=== PATIENT | male | born 1960 | race Caucasian/White ===

== ENCOUNTER → 2017-10-22 07:43 | Outpatient (CLI) | payer OTHER, SELFPAY ==
--- NOTE | 2017-10-22 07:45 | US_ITS ---
STUDY: ABDOMINAL ULTRASOUND - RIGHT UPPER QUADRANT REASON FOR VISIT: Male, 57 years old. Abdominal pain. TECHNIQUE: Ultrasound evaluation of the right upper quadrant was performed with real-time and static salmeron-scale imaging. TECHNICAL QUALITY: Adequate. COMPARISON: None. FINDINGS: Liver: The liver measures 16.9 cm. There is increased echogenicity consistent with fatty infiltration. The bile ducts are within normal limits. There is hepatic color flow. The direction of portal flow is hepatopetal. There is no demonstrated mass lesion. Gallbladder: Normal distended gallbladder. The gallbladder wall measures 2.3 mm. There is a negative sonographic Lyons's sign. There is no pericholecystic fluid. There are no gallstones. Common Bile Duct (C.B.D.): The common bile duct measures 3.3 mm. Pancreas: There is nonvisualization of the pancreas due to overlying bowel gas. Right Kidney: Normal size of the right kidney. The right kidney measures 10.8 cm x 6.3 cm x 5.2 cm. Normal renal cortex. The right cortex measures 1.7 cm. There is no demonstrated renal mass or cyst. There is no right hydronephrosis. US/Gallbladder IMPRESSION: Fatty infiltration of the liver. Electronically Signed: Haresh Sevilla MD at 9:09 EST Tel [phone], Service support ,
== END ==
PROVIDERS: Family Provider Internal Medicine; PCP Internal Medicine; Visit Provider Internal Medicine
DX: K76.0 Fatty (change of) liver, not elsewhere classified (principal); R10.11 Right upper quadrant pain
CPT/HCPCS: 76705

== ENCOUNTER → 2017-11-08 11:49 | Outpatient (CLI) | payer OTHER, SELFPAY ==
--- NOTE | 2017-11-08 11:50 | NM_ITS ---
CLINICAL: 7-year-old male with reported history of abdominal pain. RADIONUCLIDE HEPATOBILIARY SCINTIGRAPHY COMPARISON: Abdominal ultrasound report 10/22/2017 FINDINGS: Following the intravenous administration of 5.1 mCi of 99m Tc Mebrofenin, hepatobiliary images reveal: 1. Relatively prompt and homogeneous radiopharmaceutical concentration is noted by a normal sized liver. No parenchymal defects are identified. 2. Gallbladder activity is identified at 15 minutes post radiopharmaceutical administration. 3. Intestinal tract is not visualized during 60 minutes of sequential image acquisition. Small bowel is defined following the administration of the fatty meal. 4. Washout of the radiopharmaceutical by the hepatic parenchyma appears qualitatively normal. The patient was administered a fatty meal (8 ounces BOOST). The post fatty meal ingestion gallbladder ejection fraction calculated at 60 minutes was noted to be 52.0 % (normal greater than 30%). NM/Hepatobilliary Imaging IMPRESSION: 1. NORMAL 99m Tc Mebrofenin hepatobiliary imaging survey with fatty meal ingestion. A. A gallbladder ejection fraction calculated to be greater than 30% following the administration of an ingested fatty meal makes the probability of functional hepatobiliary disease (gallbladder and/or sphincter of Oddi dyskinesia) and/or organic hepatobiliary disease (chronic acalculous cholecystitis and/or cystic duct syndrome) to be low. (Good and Ezekiel, J Nucl Med 43: 1603, 2002). Electronically Signed: Saeid Villanueva DO at 13:36 EDT Tel , Service support ,
== END ==
PROVIDERS: Family Provider Internal Medicine; PCP Internal Medicine; Visit Provider Internal Medicine
DX: R10.11 Right upper quadrant pain (principal)
CPT/HCPCS: 78226; 78227; A9537

== ENCOUNTER 2018-12-05 15:41 | Day surgery (SDC) | payer OTHER, SELFPAY ==
[2018-12-05] VITALS (14 sets, daily range): BP systolic 142–170; BP diastolic 74–101; PULSE 45–64; RESP 12–20; TEMP 36.2–36.9; O2SAT 96–99; BMI 36.8; BMI 37.4
--- NOTE | 2018-12-05 12:33 | STEWCON_ITS ---
Reason For Study: SOB Stress Results Protocol: Stress Echocardiogram Maximum Predicted HR: 163 bpm Target HR: 139 bpm % Maximum Predicted HR: 93 % DurationHeart Rate Stage (mm:ss) (bpm) BP Comment BASELINE 67 154/80DILUTED DEFINITY 3 ML USED PAULO PROTOCOL- STAGE 1 3:00 129 148/80WARM SENSATION MIDSTERNAL 3/10, SL SOB PAULO PROTOCOL- STAGE 2 3:00 146 154/84MIDSTERNAL TIGHTNESS 5/10, SL SOB PAULO PROTOCOL- STAGE 3 0:47 151 / MIDSTERNAL BURNING/TIGHTNESS 5/10, SOB RECOVERY 82 144/88CP/SOB HAS SUBSIDED Stress Duration: 6:47 mm:ss Maximum Stress HR: 151 bpm Baseline Echocardiogram Findings The estimated ejection fraction is 65 %. Stress Echo Wall motion Data Resting WM Intermediate WM Stress WM Resting Wall Motion Wall Motion Stress No regional wall motion Basal anteroseptal: Severely abnormalities noted. Hypokinetic. Mid-Anterior : Severely Hypokinetic. Anterior Osgood : Akinetic. Inferior Osgood : Akinetic. EKG Data The baseline ECG displays normal sinus rhythm. The patient exercised according to the regular Paulo protocol for a total duration of 6:47. The maximum heart rate attained was 151 beats per minute. This was 92% of maximum predicted heart rate. The patient exercised into stage 3 of the Paulo protocol. The stress ECG displays diffuse abnormal ST segments. Interpretation Summary The estimated ejection fraction is 65 %. Basal anteroseptal: Severely Hypokinetic. Mid-Anterior : Severely Hypokinetic. Anterior Osgood : Akinetic. Abnormal, adequate, treadmill echocardiogram. Positive for ischemia by both EKG and echocardiographic criteria. Patient developed anginal symptoms at 3 minutes into exercise which persisted until several minutes into recovery. In addition he developed [address] segment depression along the inferior and lateral leads which resolved by 1 minute 50 seconds into recovery. Rare PVCs noted. Patient also developed significant mid anterior hypokinesis with apical akinesis at peak exercise. Final LVEF of 35%. Test terminated due to EKG and echocardiographic abnormalities. Patient referred for urgent catheterization given history and abnormal findings The study was technically difficult. Contrast injection was performed. Ordering Physician: Nikki Long Referring Physician: Nikki Long Performed By: Saranya Carlson RDCS
[2018-12-05 14:26] LABS: Hematocrit 44.8 % (40-54); Hemoglobin 15.2 g/dl (13.0-16.5); Mean Corp Hgb Conc 33.9 g/gl (32-36); Mean Corpuscular Hgb 30.4 pg (27.0-32.0); Mean Corpuscular Volume 89.6 fL (80-94); Mean Platelet Vol. 10.1 fl (6.2-12.0); Platelet Count 222 K/mm3 (150-450); RBC Distribution Width CV 13.8 % (11.6-14.6); White Blood Count 8.7 K/mm3 (4.4-11.0)
[2018-12-05 14:29] LABS: International Normalized Ratio 1.1; Prothrombin Time (Protime)PT. 13.9 SECONDS (11.7-14.9)
[2018-12-05 14:30] LABS: Partial Thromboplast Time 32.3 Seconds (24.1-36.2)
[2018-12-05 14:33] LABS: Anion Gap 7 (5-15); BUN 17 mg/dL (7-18); BUN/Creat Ratio 16.5 RATIO (10-20); Calcium,Total 8.8 mg/dL (8.5-10.1); Chloride 108 mmol/L (98-107); Creatinine, Serum 1.03 mg/dL (0.70-1.30); EST Glomerular Filtration Rate 79 mL/min (>60); Est Glom Filt Rate - Afr Amer 96 mL/min (>60); Glucose 91 mg/dL (74-106); Potassium 4.1 mmol/L (3.5-5.1); Sodium Level 138 mmol/L (136-145)
[2018-12-05 14:48] LABS: Scan Indicated on CBC? Y/N NO
--- NOTE | 2018-12-05 15:54 | CRPHASE1 ---
Patient Communication PHII Cardiac Rehab Discussed with Patient:: Yes - discussed with pt's Guide to Cardiac Rehab Given to Patient:: Yes Cardiac Rehab Facility Choice List Given to Patient:: Yes - chooses [facility] Choice Program [facility] CR PHII:: Communication Given to CR, Refer to [facility] Pharmacist In Charge Owner:: Loyd Jama PCP:: Nikki Long Phase II Cardiac Rehab:: Yes Sessions:: 36 sessions - 3 days/wk, 12 weeks Risk Factors/Lifestyle Phase I Education Given On:: [place], Nutrition, Antiplatelet medication, CHF, Smoking cessation, Diabetes - Type I, Diabetes - Type II Knowledge of Condition:: Yes Discharge/Home/Social Eval Marital Status: Cardiac Rehabilitation Info Cardiac Rehabilitation Program Information: Cardiac Rehabilitation is important for patients like you who are recovering from a heart problem. Cardiac rehabilitation programs are recognized as integral to the continued care of the patient with coronary heart disease. The cardiac rehabilitation program is designed to optimize a patient's physical, psychological, and social functioning. Health intensive care specialist work in cardiac rehabilitation programs and assist you with getting the treatments you need to get stronger and healthier - like exercise, healthy eating habits, and medications. Cardiac rehabilitation has been show to help people with heart problems live longer and have better life enjoyment than people who do not go to cardiac rehabilitation. Please contact the Cardiac Rehabilitation Program at [facility] at in two weeks if you have not heard from them.
--- NOTE | 2018-12-05 15:57 | CRPHASE1_ITS ---
Patient Communication PHII Cardiac Rehab Discussed with Patient:: Yes - discussed with pt's Guide to Cardiac Rehab Given to Patient:: Yes Cardiac Rehab Facility Choice List Given to Patient:: Yes - chooses [facility] Choice Program [facility] CR PHII:: Communication Given to CR, Refer to [facility] Circuit Breaker Mechanic:: Loyd Jama PCP:: Nikki Long Phase II Cardiac Rehab:: Yes Sessions:: 36 sessions - 3 days/wk, 12 weeks Risk Factors/Lifestyle Phase I Education Given On:: [place], Nutrition, Antiplatelet medication, CHF, Smoking cessation, Diabetes - Type I, Diabetes - Type II Knowledge of Condition:: Yes Discharge/Home/Social Eval Marital Status: Cardiac Rehabilitation Info Cardiac Rehabilitation Program Information: Cardiac Rehabilitation is important for patients like you who are recovering from a heart problem. Cardiac rehabilitation programs are recognized as integral to the continued care of the patient with coronary heart disease. The cardiac rehabilitation program is designed to optimize a patient's physical, psychological, and social functioning. Health landcare officer work in cardiac rehabilitation programs and assist you with getting the treatments you need to get stronger and healthier - like exercise, healthy eating habits, and medications. Cardiac rehabilitation has been show to help people with heart problems live longer and have better life enjoyment than people who do not go to cardiac rehabilitation. Please contact the Cardiac Rehabilitation Program at [facility] at in two weeks if you have not heard from them.
--- NOTE | 2018-12-05 15:57 | CRPH1.INSTRU ---
General Education CAD and cardiac anatomy and function:: Needs reinforcement - all info discussed with pt's . 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 Explanation of diagnoses and procedures:: Needs reinforcement Sign/Symptoms of WA:: Needs reinforcement Antiplatelet therapy: Needs reinforcement Proper use of NTG-SL: Needs reinforcement Emergency procedures and activation of EMS: Needs reinforcement Compliance of all prescribed medications: Needs reinforcement
--- NOTE | 2018-12-05 16:22 | ECHOCS_ITS ---
Reason For Study: CAD/ASHD Procedure This was a 2D Doppler, Color Flow transthoracic echocardiogram. Contrast injection was performed. Exam performed portable in ICU/CCU. Left Ventricle Normal size and thickness. The estimated ejection fraction is 55-60 %. Stage 1 diastolic dysfunction. Anterior [place] : Mildly hypokinetic. Right Ventricle Normal size and thickness. Normal systolic function. Atria Normal left atrium. Normal right atrium. Normal atrial septum. Mitral Valve The mitral valve is structurally normal. No prolapse or stenosis seen. Tricuspid Valve Normal tricuspid valve. Trivial tricuspid valve insufficiency. Unable to estimate RV systolic pressure/pulmonary artery pressure due to technically difficult study. Aortic Valve Normal aortic valve. Trisinus/trileaflet aortic valve. Pulmonic Valve Normal pulmonic valve. Great Vessels Normal aortic root. Normal arch. Normal inferior vena cava. Inferior vena cava collapse with sniff. Pericardium/Pleural No pericardial effusion. Medication Definity0.4ml given slow IV push to enhance endocardial definition. MMode/2D Measurements & Calculations LVIDd: 5.4 cm IVSd: 1.3 cm Ao root diam: 3.5 cm LVIDs: 2.8 cm LVPWd: 1.3 cm RVDd: 4.6 cm FS: 48.8 % LAV(MOD-bp): 50.5 ml LVAd ap4: 36.2 cm2 SV(MOD-sp4): 86.3 ml LAV(MOD-bp) Indexed: 21.6 ml/m2 EDV(MOD-sp4): 126.6 ml LAV(MOD-sp2): 41.1 ml EDV(sp4-el): 129.1 ml LAV(MOD-sp4): 60.5 ml LVAs ap4: 18.2 cm2 ESV(MOD-sp4): 40.3 ml ESV(sp4-el): 39.7 ml EF(MOD-sp4): 68.2 % EF(sp4-el): 69.2 % SV(sp4-el): 89.4 ml LA A4 area: 20.5 cm2 LA dimension(2D): 4.6 cm RA A4 area: 14.0 cm2 Doppler Measurements & Calculations MV E max silviano: 68.3 cm/sec Lat Peak E' Silviano: 6.7 cm/sec Med Peak E' Silviano: 6.6 cm/sec MV A max silviano: 76.2 cm/sec E/E' lat: 10.2 E/E' med: 10.3 MV E/A: 0.90 Ao V2 max: 148.7 cm/sec LV V1 max: 118.1 cm/sec PA V2 max: 145.8 cm/sec Ao max P.8 mmHg LV V1 max P.6 mmHg Ao V2 mean: 104.9 cm/sec Ao mean P.9 mmHg Ao V2 VTI: 31.3 cm Interpretation Summary The estimated ejection fraction is 55-60 %. Stage 1 diastolic dysfunction. Anterior [place] : Mildly hypokinetic Unable to estimate RV systolic pressure/pulmonary artery pressure due to technically difficult study. The study was technically difficult. There is no comparison study available. Contrast injection was performed. Ordering Physician: Loyd Jama Referring Physician: Nikki Long Performed By: Ester García RDCS, RVT
--- NOTE | 2018-12-05 16:22 | EKG12_ITS ---
Test Reason : AM EKG Blood Pressure : / mmHG Vent. Rate : 050 BPM Atrial Rate : 050 BPM P-R Int : 180 ms QRS Dur : 088 ms QT Int : 424 ms P-R-T Axes : 036 054 068 degrees QTc Int : 386 ms Sinus bradycardia Otherwise normal ECG When compared with ECG of 17-JUL-2002 08:58, Vent. rate has decreased BY 32 BPM Confirmed by LUCI PEREZ, DESIRAE ([id number]), web content editor KARTHIKEYAN PRESTON ([id number]) on 12/10/2018 2:02:10 PM Referred By: Nikki Long Confirmed By:DESIRAE VERMA MD
--- NOTE | 2018-12-05 16:26 | CL.I_ITS ---
Patient Name: JOSHUA PRESTON Study Date: 12/05/2018 Performing: Loyd Jama MD Ht: 70 inches 177.8 cm : 1960 Wt: 257.3 lbs 116.57 kg Age: 58 Gender: male BSA: 2.32 PROCEDURE(S) PERFORMED IW52-UXF/COR/LV DM92-EGS W OR WO PTCA, SINGLE CORONARY ARTERY CLINICAL PROFILE AND CO-MORBIDITIES Indications: New Onset Angina <= 2 months, Worsening Angina, Suspected CAD Heart Failure: None Stress/Imaging Date: 12/05/2018 Stress Echocardiogram: Positive High Risk Angina Classification Anginal Classification w/in 2 Weeks: CCS III CAD Presentations: Unstable angina. Other: Dyspnea on exertion Comorbidities/Risk Factors: Hypertension Dyslipidemia Family History of Premature CAD CONCLUSIONS Normal LV size, wall motion,and systolic function Perserved Left Ventricular systolic function with normal EDP Single vessel CAD of the LAD Non obstructive coronary arteries Successful PTCA/THU mid LAD with a 3.5 x 38 Promus Synergy, post dilated throughout with a 3.5 x 12 N C ballloon at 18 atim; 99%-->0%, no dissection. Successful PTCA/THU distal LAD with a 2.5 x 32 Promus Synergy, post dilated with a 2.5 x 12 NC Balloo n 75%-->0%, no dissection. RECOMMENDATIONS Referred for immediate PCI Management as per referring Brand Strategy Manager Highly recommend quitting all tobacco products Follow up with primary hydraulic billet maker Risk factor modification ASA Indefinitley Plavix for at least 12 months Routine post interventional care Refer for Outpatient Cardiac Rehab Manual sheath removal per protocol Follow up with Dr. Jama Medical management of 50% mid LAD stenosis unless or until Pt has recurrent angina or anterior ischem ia. Successful Mynx closure. DESCRIPTION OF PROCEDURE The patient arrived to the procedure lab. The risks and benefits of the procedure as well as a full d escription of our services here and lack of surgical backup were fully explained to the patient and/o r their significant other prior to the catheterization. The Timeout was completed, verifying the cristóbal ect patient and procedure. The patient's procedural site was prepped and draped in the usual fashion. Local anesthetic was given subcutaneously to right groin region with Lidocaine 2%. Using a modified Seldinger technique, arterial access was obtained via the right femoral artery, a 4Fr sheath was inse rted. Left Coronary Artery selective angiography was performed in multiple views using a 4 Fr. JL5 c atheter. Right Coronary Artery selective angiography was then performed in multiple views using a 4 F r. 3DRC catheter. Left Ventriculography was performed in HAYWARD projection using a 4 Fr. Pigtail cathete r. LV to AO pullback pressures were then recordedThe images were reviewed and options discussed. A decision was then made to proceed with an Intervention, IVUS or other adjunct procedure. Arterial sheath was exchanged for a 6 Fr Sheath. EBU 3.75 Guide catheter was inserted and engaged into the LCA. Emerge 2.00x8 Balloon catheter was inserted and crossed lesion [facility] AP inserted Pass # 1 [facility] AP Removed Emerge 2.00x8 Balloon catheter was inserted. PTCA balloon inflated at 6 atms f or 9 secs. PTCA balloon inflated at 6 atms for 6 secs. PTCA balloon inflated at 6 atms for 7 secs. Em erge 2.50x12 Balloon catheter was inserted. PTCA balloon inflated at 8 atms for 8 secs. PTCA balloon inflated at 8 atms for 7 secs. Angiogram performed post balloon dilatation. Emerge 2.50x12 Balloon ca theter was inserted. PTCA balloon inflated at 6 atms for 5 secs. PTCA balloon inflated at 6 atms for 5 secs. PTCA balloon inflated at 6 atms for 6 secs. Angiogram performed post balloon dilatation. Syne rgy 2.50x32 Drug Eluting stent was inserted. Angiogram performed post stent deployment. Synergy 3.50x 38 Drug Eluting stent was inserted. NC Emerge 2.50x12 Balloon catheter was inserted. PTCA balloon inflated at 14 atms for 9 secs. PTCA balloon inflated at 14 atms for 6 secs. PTCA balloon inf lated at 14 atms for 6 secs. PTCA balloon inflated at 14 atms for 6 secs. Angiogram performed post ba lloon dilatation. Balloon catheter was inserted, NC Emerge 3.50x12 PTCA balloon inflated at 14 atms f or 7 secs. PTCA balloon inflated at 14 atms for 6 secs. PTCA balloon inflated at 14 atms for 7 secs. PTCA balloon inflated at 14 atms for 7 secs. PTCA balloon inflated at 14 atms for 6 secs. PTCA balloo n inflated at 18 atms for 10 secs. PTCA balloon inflated at 18 atms for 7 secs. Angiogram performed p ost balloon dilatation. Contrast was injected through the sheath and the Right Iliac and Femoral mike ry were assessed for possible closure device. The arterial sheath was pulled and a Mynx closure go ce was deployed for hemostasis CORONARY ANGIOGRAPHY DOMINANCE: Right Dominant LEFT HEART ASSESSMENT Left Ventricular Ejection Fraction: by LV Gram 65 % Normal Left Ventricular systolic function LVEDP: 15 mmHg LEFT MAIN: Angiographically normal LEFT ANTERIOR DECENDING ARTERY: MID LAD: 99 % Stenosis DISTAL LAD: 75 % Stenosis CIRCUMFLEX ARTERY: Mild luminal irregularities less than 30% RIGHT CORONARY ARTERY: Mild luminal irregularities less than 30% COLLATERAL FLOW: Collateral flow from Left to Left INTERVENTION INFORMATION LESION SITE: LAD (Mid) Lesion Complexity: High/C, lesion at bifurcation: No, thrombus present: Yes, lesion length: 38 mm, cu lprit lesion: Yes Pre Stenosis: 99 % Pre intervention JASMYN flow: 1 PROCEDURE: Drug Eluting Stent with pre and post dilatation Post Stenosis: 0 % Post intervention JASMYN flow: 3 Lesion Devices: Medtronic 6 Fr EBU3.75 100cm Guide Catheter Jose Juan Sci EMERGE MR 2.00x08 BALLOON Medtronic 6 Fr. [facility] AP Aspiration Catheter Jose Juan Sci EMERGE MR 2.50x12 BALLOON Jose Juan Sci Synergy MR THU 3.50x38 Jose Juan Sci NC EMERGE MR 3.50x12 BALLOON Lesion Devices: Medtronic 6 Fr EBU3.75 100cm Guide Catheter Jose Juan Sci Synergy MR THU 2.50x32 Jose Juan Sci NC EMERGE MR 2.50x12 BALLOON COMPLICATIONS No Complications PROCEDURE MEDICATIONS Oxygen: 2 L/min via nasal cannula Aspirin (325mg) 1 Tabs PO 12/05/2018 14:01:44 Brilinta 180 mg PO @ 12/05/2018 14:01:51 Heparin 6000 unit(s) IV 12/05/2018 15:05:50 Nitro 200 mcg IC 12/05/2018 15:22:05 Nitro 200 mcg IC 12/05/2018 15:22:05 Nitro 200 mcg IC 12/05/2018 15:28:50 Nitro 200 mcg IC 12/05/2018 15:33:40 Nitro 200 mcg IC 12/05/2018 15:46:14 IV Bolus: .9 NaCl 500ml total 12/05/2018 15:05:57 IV Fluids: .9 NaCl IV started @ 150 ml/hr 12/05/2018 16:04:21 SUMMARY OF HEMODYNAMIC DATA Time AIR REST ECG 14:04:07 AO 147/71 (99) SA 14:57:19 LV 165/-14, 15 15:03:30 LV 185/-16, 25 15:03:36 LVp 182/-15, 29 15:03:41 AOp 164/74 (110) 15:03:46 Signed By Loyd Jama MD On 12/05/2018 16:25:24 Loyd Jama MD
--- NOTE | 2018-12-05 16:31 | PCM.DC.CCA ---
Discharge Diet: Low fat/ Low Cholesterol May shower in (days): 1 Lifting Restrictions: 10 pounds and also avoid any pushing or pulling for 3 days after your test. Call your doctor if your incision/area has: Continuous Slow Oozing, Sudden Increased Bleeding, Increased Pain/ Swelling, Increased Redness, Foul Smelling Discharge, Swelling at the incision site Call your doctor if you observe: Fever of 101 or Higher, Shortness of breath, Chest pain Remove Dressing in (days):: 1 Additional Instructions: You were started on an antiplatelet to help keep your stents open. You will need to stay on this medication for at least one year Prior to discontinuing. You are scheduled to see Dominik bee nurse practitioner at the [facility] on December 15 at 1030 for a follow-up on your heart catheterization. Our office phone number is [phone] if you have any questions. Allergies/Adverse Reactions: Allergies Latex, Natural Rubber Allergy (Verified 12/05/18 14:11) Rash Medications to take at Discharge Aspirin 81 mg PO DAILY 12/05/18 Fish Oil/Dha/Epa [Fish Oil 1,200 mg Fish Oil] 5 each PO DAILY 12/05/18 Primary Care Physician: Nikki Long DO [Primary Care Provider] - Test Results: Test results from this visit will be discussed in further detail at your follow-up appointment, if applicable. Please Follow Up With: Dominik Bee NP-C When: 12/15 at 1030 Cardiac Rehabilitation Info Cardiac Rehabilitation Program Information: Cardiac Rehabilitation is important for patients like you who are recovering from a heart problem. Cardiac rehabilitation programs are recognized as integral to the continued care of the patient with coronary heart disease. The cardiac rehabilitation program is designed to optimize a patient's physical, psychological, and social functioning. Health med care manager work in cardiac rehabilitation programs and assist you with getting the treatments you need to get stronger and healthier - like exercise, healthy eating habits, and medications. Cardiac rehabilitation has been show to help people with heart problems live longer and have better life enjoyment than people who do not go to cardiac rehabilitation. Please contact the Cardiac Rehabilitation Program at [facility] at in two weeks if you have not heard from them.
--- NOTE | 2018-12-05 16:39 | DCINST_ITS ---
Discharge Diet: Low fat/ Low Cholesterol May shower in (days): 1 Lifting Restrictions: 10 pounds and also avoid any pushing or pulling for 3 days after your test. Call your doctor if your incision/area has: Continuous Slow Oozing, Sudden Increased Bleeding, Increased Pain/ Swelling, Increased Redness, Foul Smelling Discharge, Swelling at the incision site Call your doctor if you observe: Fever of 101 or Higher, Shortness of breath, Chest pain Remove Dressing in (days):: 1 Additional Instructions: You were started on an antiplatelet to help keep your stents open. You will need to stay on this medication for at least one year Prior to discontinuing. You are scheduled to see Dominik bee nurse practitioner at the [facility] on December 15 at 1030 for a follow-up on your heart catheterization. Our office phone number is [phone] if you have any questions. Allergies/Adverse Reactions: Allergies Latex, Natural Rubber Allergy (Verified 12/05/18 14:11) Rash Medications to take at Discharge Aspirin 81 mg PO DAILY 12/05/18 Fish Oil/Dha/Epa [Fish Oil 1,200 mg Fish Oil] 5 each PO DAILY 12/05/18 Primary Care Physician: Nikki Long DO [Primary Care Provider] - Test Results: Test results from this visit will be discussed in further detail at your follow- up appointment, if applicable. Please Follow Up With: Dominik Bee NP-C When: 12/15 at 1030 Cardiac Rehabilitation Info Cardiac Rehabilitation Program Information: Cardiac Rehabilitation is important for patients like you who are recovering from a heart problem. Cardiac rehabilitation programs are recognized as integral to the co ntinued care of the patient with coronary heart disease. The cardiac rehabilitation program is designed to optimize a patient's physical, psychological, and social functioning. Health director of healthcare systems work in cardiac rehabilitation programs and assist you with getting the treatments you need to get stronger and healthier - like exercise, healthy eating habits, and medications. Cardiac rehabilitation has been show to help people with heart problems live longer and have better life enjoyment than people who do not go to cardiac rehabilitation. Please contact the Cardiac Rehabilitation Program at [facility] at in two weeks if you have not heard from them.
[2018-12-05] MEDS: 0.9% Normal Saline 1,000 ML 150 ML IV (16:54)
[2018-12-05] MEDS: Losartan Potassium 25 MG Tablet PO (17:15)
[2018-12-05 17:16] LABS: ACT Activated Clotting Time 202 sec (74-137)
--- NOTE | 2018-12-05 17:36 | HP.PCM_ITS ---
Problem List (1) Hypertension Status: Acute (2) Dyslipidemia Status: Acute (3) Obesity grade 3 Status: Acute (4) CAD (coronary artery disease) Status: Acute Comment: Successful PTCA/THU mid LAD with a 3.5 x 38 Promus Synergy, post dilated throughout with a 3.5 x 12 NC ballloon at 18 atim; 99%-->0%, no dissection. Successful PTCA/THU distal LAD with a 2.5 x 32 Promus Synergy, post dilated with a 2.5 x 12 NC Balloon 75%-->0%, no dissection. (5) CAD (coronary artery disease), [place] coronary artery Status: Acute History of Present Illness Date of Admission: 12/05/18 Chief Complaint: Anginal symptoms and abnormal stress echo The patient is a 58 year old M with history of hypertension and dyslipidemia but not on medication had any stress echo because of shortness of breath and chest tightness even on mild activity/exercise. He said he was easily getting short of breath on stationary bike. He saw Dr. Long and was given prednisone 20 mg and pro-air thinking of possible bronchitis in October 2018. This did not improve and therefore he had a stress echo in November 2018 which was abnormal by both EKG and echocardiographic criteria patient patient developed anginal symptoms at 3 minutes into exercise which persisted until several mins into recovery. There was [address] segment depression inferior lateral leads which resolved by 1 minute 50 seconds into recovery. Patient also had significant mid anterior hypokinesis with apical akinesis at peak exercise. LVEF 35%. For this, patient had cardiac catheter today and found single-vessel CAD of LAD for which had 2 stents in mid LAD and distal LAD respectively. EF by LV gram 65%. Patient is further admitted in ICU after PCI [] Past Medical History Allergies Latex, Natural Rubber Allergy (Verified 12/05/18 14:11) Rash Home Medications: Ambulatory Orders Medication Instructions Recorded Aspirin 81 mg PO DAILY 12/05/18 Fish Oil/Dha/Epa [Fish Oil 1,200 5 each PO DAILY 12/05/18 mg Fish Oil] Smoking Status: Never smoker - *Family History Paternal Family History: Family History (Last Updated 12/05/18 @ 18:11 by Cal Beauchamp MD) Other MOTHER History Items: Heart Disease Review of Systems Constitutional: Denies: Chills, Fever, Weight Change HEENT: Denies: Head Aches, Sinus Congestion, Sinus Drainage Cardiovascular: Reports: Chest Tightness. Denies: Chest Pain, Palpitations Respiratory: Reports: Shortness of breath upon exertion. Denies: Cough, Shortness of breath at rest, Sputum production Gastrointestinal: Denies: Abdominal Pain, Nausea, Vomiting Genitourinary: Denies: Dysuria Musculoskeletal: Denies: Joint Pain, Joint Tenderness Skin: Denies: Rash, Wounds Neurological: Denies: Numbness, Tingling, Focal weakness Psychiatric: Denies: Anxiety, Depression, Homicidal Ideations, Suicidal Ideations Hematologic/ Lymphatic: Denies: Easy Bruising, Easy Bleeding VTE Information - Inpt Only VTE Present on Admission: Yes VTE Mechan Device Prophylaxis: None VTE Pharm Prophylaxis ordered?: Yes Patient Problems: Active and Suspected Problems Hypertension (Acute) Dyslipidemia (Acute) Obesity grade 3 (Acute) CAD (coronary artery disease), [place] coronary artery (Acute) CAD (coronary artery disease) (Acute) Successful PTCA/THU mid LAD with a 3.5 x 38 Promus Synergy, post dilated throughout with a 3.5 x 12 NC ballloon at 18 atim; 99%-->0%, no dissection. Successful PTCA/THU distal LAD with a 2.5 x 32 Promus Synergy, post dilated with a 2.5 x 12 NC Balloon 75%-->0%, no dissection. - Physical Exam General: Alert, Oriented x3, Cooperative HEENT: Atraumatic, PERRLA, EOMI, Normocephalic Oral: Moist Mucosa Neck: Supple, No JVD, Negative Carotid Bruits Lungs: Clear to auscultation, No rhonchi, No wheeze, No rales, Diminished - Air entry is diminished in bilateral lung bases probably secondary to obesity Cardiovascular: Regular rate, Regular Rhythm, Normal S1, Normal S2, No murmurs Abdomen: Bowel Sounds Present, Soft, Non Tender, Non-Distended Extremities: No edema, Capillary Refill Less than 3 Seconds Skin: No rashes, No breakdown, - - Right femoral cardiac cath access site, dry. No hematoma no BRUISE Musculoskeletal: No Tenderness to Palpation of Joints or Extremities Neurological: Cranial nerves II-XII grossly intact, Deep Tendon Reflexes 2+/4 and Symmetrical, Neuro grossly intact Psych/Mental Status: Normal Affect, Appropriate Vital Signs Temp Pulse Resp BP Pulse Ox 97.1 F L 55 L 15 158/101 H 98 12/05/18 16:30 12/05/18 17:30 12/05/18 17:30 12/05/18 17:30 12/05/18 17:30 Oxygen Delivery Method Room Air Weight: 261 lb 7.492 oz Body Mass Index (BMI) 37.4 Intake and Output for Last 24 Hours 12/03/18 12/04/18 12/05/18 23:59 23:59 23:59 Intake Total 104 / 104 Balance 104 / 104 Laboratory Tests Past 24 Hrs 12/05/18 12/05/18 12/05/18 14:10 14:10 14:10 WBC 8.7 RBC 5.00 Hgb 15.2 Hct 44.8 MCV 89.6 MCH 30.4 MCHC 33.9 RDW 13.8 RDW Differential 45.0 H Plt Count 222 MPV 10.1 PT 13.9 INR 1.1 APTT 32.3 Activated Clotting Time Sodium 138 Potassium 4.1 Chloride 108 H Carbon Dioxide 23.0 Anion Gap 7 BUN 17 Creatinine 1.03 Estim Creat Clear Calc 81.70 Est GFR (MDRD) Af Amer 96 Est GFR (MDRD) Non-Af 79 BUN/Creatinine Ratio 16.5 Glucose 91 Hemoglobin A1c Calcium 8.8 12/05/18 12/05/18 14:10 15:58 WBC RBC Hgb Hct MCV MCH MCHC RDW RDW Differential Plt Count MPV PT INR APTT Activated Clotting Time 202 H Sodium Potassium Chloride Carbon Dioxide Anion Gap BUN Creatinine Estim Creat Clear Calc Est GFR (MDRD) Af Amer Est GFR (MDRD) Non-Af BUN/Creatinine Ratio Glucose Hemoglobin A1c Pending Calcium Assessment/Plan All Active Problems Hypertension (Acute) Dyslipidemia (Acute) Obesity grade 3 (Acute) CAD (coronary artery disease), [place] coronary artery (Acute) CAD (coronary artery disease) (Acute) The patient is a 58 year old M with history of hypertension and dyslipidemia but not on medication had any stress echo because of shortness of breath and chest tightness even on mild activity/exercise. He said he was easily getting short of breath on stationary bike. He saw Dr. Long and was given prednisone 20 mg and pro-air thinking of possible bronchitis in October 2018. This did not improve and therefore he had a stress echo in November 2018 which was abnormal by both EKG and echocardiographic criteria patient patient developed anginal symptoms at 3 minutes into exercise which persisted until several mins into recovery. There was [address] segment depression inferior lateral leads which resolved by 1 minute 50 seconds into recovery. Patient also had significant mid anterior hypokinesis with apical akinesis at peak exercise. LVEF 35%. For this, patient had cardiac catheter today and found single-vessel CAD of LAD for which had 2 stents in mid LAD and distal LAD respectively. EF by LV gram 65%. 1. Unstable angina and abnormal stress echo with single-vessel coronary artery disease: Patient is being admitted in ICU after PCI. Patient is on aspirin, Brilinta, losartan, metoprolol and atorvastatin. Patient will be monitored for arrthymia after PCI. 2. Hypertension: Blood pressure is not well controlled. Currently started on losartan 25 mg daily and may need up titration tomorrow based on the response. 3. Dyslipidemia: Fasting profile on 01/09/2014 shows HDL 30 but normal LDL. Fasting profile is ordered. 4. Obesity grade 3: Patient will need further weight reduction exercise, aerobic exercise with cardiac rehab. Code Visit Inpatient E&M: 86638 Init Hosp L3
[2018-12-05] MEDS: Metoprolol Tartrate 25 MG Tablet 12.5 MG PO (18:37)
[2018-12-05 20:15] LABS: Hemoglobin A1c 5.3 % (4.2-6.3)
[2018-12-05] MEDS: Atorvastatin Calcium 80 MG Tablet PO (21:53)
[2018-12-05] MEDS: TICAGRELOR 90 MG TABLET PO (21:53)
[2018-12-06] VITALS (10 sets, daily range): BP systolic 134–163; BP diastolic 59–87; PULSE 47–69; RESP 10–20; TEMP 36.2–36.7; O2SAT 95–98
[2018-12-06 04:19] LABS: Hematocrit 40.9 % (40-54); Hemoglobin 13.8 g/dl (13.0-16.5); Mean Corp Hgb Conc 33.7 g/gl (32-36); Mean Corpuscular Hgb 30.3 pg (27.0-32.0); Mean Corpuscular Volume 89.9 fL (80-94); Mean Platelet Vol. 10.3 fl (6.2-12.0); Platelet Count 208 K/mm3 (150-450); RBC Distribution Width CV 14.1 % (11.6-14.6); RBC Distribution Width SD 45.7 fl (35.1-43.9); Red Blood Count 4.55 M/mm3 (4.6-6.2); White Blood Count 11.4 K/mm3 (4.4-11.0)
[2018-12-06 04:24] LABS: Scan Indicated on CBC? Y/N NO
[2018-12-06 04:40] LABS: Anion Gap 6 (5-15); BUN 14 mg/dL (7-18); BUN/Creat Ratio 14.4 RATIO (10-20); Calcium,Total 8.2 mg/dL (8.5-10.1); Chloride 107 mmol/L (98-107); Cholesterol 184 mg/dL (200); Creatinine, Serum 0.97 mg/dL (0.70-1.30); EST Glomerular Filtration Rate 85 mL/min (>60); Est Glom Filt Rate - Afr Amer 103 mL/min (>60); Estimated Creatinine Clearance 86.76 ml/min; Glucose 88 mg/dL (74-106); High Density Lipoprotein 27 mg/dL; Sodium Level 141 mmol/L (136-145); Triglycerides 171 mg/dL; Very Low Density Lipoprotein 34 mg/dL (5-40)
[2018-12-06] MEDS: Metoprolol Tartrate 25 MG Tablet 12.5 MG PO (07:38)
[2018-12-06] MEDS: TICAGRELOR 90 MG TABLET PO (07:38)
[2018-12-06] MEDS: Aspirin E.C. 81 MG Tablet PO (07:38)
[2018-12-06] MEDS: Losartan Potassium 25 MG Tablet PO (07:38)
--- NOTE | 2018-12-06 08:53 | PCM.PN.CARD ---
Subjectve: Mr. Montanez feels wonderful this morning acclimation Thanh he reports no chest pain and feels much better since his stenting with an immediate improvement. His right groin is clean/dry/intact, no thrills, bruits or hematoma. Hemoglobin and creatinine are within nominal limits. Telemetry is negative. EKG shows normal sinus rhythm with resolving ST and T wave inversion. Echo is pending. Objective: Vital Signs Temp Pulse Resp BP Pulse Ox 97.1 F L 58 L 14 147/87 H 96 12/06/18 08:00 12/06/18 08:00 12/06/18 08:00 12/06/18 08:00 12/06/18 08:00 Oxygen Delivery Method Room Air Weight: 261 lb 7.492 oz Body Mass Index (BMI) 37.4 Intake and Output for Last 24 Hours 12/04/18 12/05/18 12/06/18 23:59 23:59 23:59 Intake Total 104 / 104 1476 / 1476 Balance 104 / 104 1476 / 1476 General: Awake, Alert, Oriented x 3 HEENT: PERRL, EOMI, Sclera Non Icteric Neck: Supple, Good ROM, No Lymph Node Enlargement Lungs: Clear to auscultation Cardiovascular: Regular Rhythm, Normal S1, Normal S2, No Murmurs, No Rubs, No Gallops Vascular: No Carotid Bruits, Normal Femoral Pulses, Normal Radial Pulses, Normal Dorsalis Pedal Pulse, Normal Posterior Tibial Pulses Abdomen: Bowel Sounds Present, Soft, Non Tender, No HSM, No Organomegaly Extremities: No Cyanosis, No Clubbing, No edema Neurological: No Focal Motor or Sensory Deficit 12/05/18 14:10: WBC 8.7, RBC 5.00, Hgb 15.2, Hct 44.8, MCV 89.6, MCH 30.4, MCHC 33.9, RDW 13.8, RDW Differential 45.0 H, Plt Count 222, MPV 10.1 12/05/18 14:10: PT 13.9, INR 1.1, APTT 32.3 12/05/18 14:10: Sodium 138, Potassium 4.1, Chloride 108 H, Carbon Dioxide 23.0, Anion Gap 7, BUN 17, Creatinine 1.03, Est GFR (MDRD) Af Amer 96, Est GFR (MDRD) Non-Af 79, BUN/Creatinine Ratio 16.5, Glucose 91, Calcium 8.8 12/05/18 14:10: Hemoglobin A1c 5.3 12/06/18 04:00: WBC 11.4 H, RBC 4.55 L, Hgb 13.8, Hct 40.9, MCV 89.9, MCH 30.3, MCHC 33.7, RDW 14.1, RDW Differential 45.7 H, Plt Count 208, MPV 10.3 12/06/18 04:00: Sodium 141, Potassium 4.0, Chloride 107, Carbon Dioxide 28.0, Anion Gap 6, BUN 14, Creatinine 0.97, Est GFR (MDRD) Af Amer 103, Est GFR (MDRD) Non-Af 85, BUN/Creatinine Ratio 14.4, Glucose 88, Calcium 8.2 L, Triglycerides 171, Cholesterol 184, LDL Cholesterol 123, VLDL Cholesterol 34, HDL Cholesterol 27 L Rhythm: EKG: As above ECHO: Pending Stress Test: Cardiac Cath: PCI: CT Surgery: Holter monitor: EPS: PPM: CXR: Chest CT Scan: Medical Necessity - Tobacco Use Smoking Status: Never smoker Assessment/Plan 1. Coronary artery disease: The patient represents with recent worsening shortness of breath and chest pain over the last 1-2 weeks. He was initially treated with antibiotics and prednisone however this did not improve things. He underwent a stress echocardiogram yesterday which was markedly abnormal for both EKG, chest pain/angina, and anterior apical hypokinesis. Urgent left heart catheterization demonstrated a 99% stenosis in his mid LAD with left to left collaterals. He underwent successful angioplasty and drug-eluting stenting x2 to the mid and distal LAD. He received a 2.5 ex-32 Promus stent to the distal LAD, as well as a 3.5 ex-38 Promus stent to the mid LAD. In between the 2 stents there was about a 50% stenosis however this was left for medical management as it did not appear to be obstructive. The patient feels much better today and has declared an immediate improvement. I recommend the patient continue baby aspirin, Brilinta, beta-elidia, Cozaar and statin based therapy. He may be discharged after his echocardiogram is been completed. He will follow-up with Dr. Jama going forward. He underwent minx closure procedure yesterday but nonetheless I recommend he stay off work until least this upcoming Saturday. 2. Hyperlipidemia: His LDL is 123 and HDL is 27. He was started on high-dose Lipitor therapy at 80 mg p.o. nightly, and we will repeat his lipid profile in 6 weeks time. 3. Once his groin is healed he will be enrolled in phase 2 cardiac rehab. 4. Patient may be discharged home once his echocardiogram is been completed. Code Visit Inpatient E&M: 10928 Subs Hosp L2
--- NOTE | 2018-12-06 09:56 | DCINST_ITS ---
- Discharge Diagnoses Current Active Problems: Current Active and Chronic Problems Hypertension (Acute) Dyslipidemia (Acute) Obesity grade 3 (Acute) CAD (coronary artery disease), [place] coronary artery (Acute) CAD (coronary artery disease) (Acute) Successful PTCA/THU mid LAD with a 3.5 x 38 Promus Synergy, post dilated throughout with a 3.5 x 12 NC ballloon at 18 atim; 99%-->0%, no dissection. Successful PTCA/THU distal LAD with a 2.5 x 32 Promus Synergy, post dilated with a 2.5 x 12 NC Balloon 75%-->0%, no dissection. You will use the following diet at home:: No restrictions Your food should be the consistency of: Regular Your liquids should be the consistency of: Regular/Thin Discharge Activity: Return to Normal Activity May shower in (days): 1 Weight Bearing Status: Full weight bearing Call your doctor if your incision/area has: Continuous Slow Oozing, Sudden Increased Bleeding, Increased Pain/ Swelling, Increased Redness, Foul Smelling Discharge, Swelling at the incision site Call your doctor if you observe: Fever of 101 or Higher, Shortness of breath, Chest pain Remove Dressing in (days):: 1 Allergies/Adverse Reactions: Allergies Latex, Natural Rubber Allergy (Verified 12/05/18 14:11) Rash Medications to take at Discharge Aspirin 81 mg PO DAILY 12/05/18 Aspirin E.C. [Ecotrin] 81 mg PO DAILY@0800 tablet 12/06/18 Atorvastatin Calcium [Lipitor] 80 mg PO QHS tablet 12/06/18 Losartan Potassium [Cozaar] 25 mg PO DAILY tablet 12/06/18 Metoprolol Tartrate [Lopressor (beta elidia)] 12.5 mg PO BID tablet 12/06/18 Ticagrelor [Brilinta] 90 mg PO BID tablet 12/06/18 Orders to be completed after discharge: Phase II, Outpatient Cardiac Rehab Location: None Selected Primary Care Physician: Nikki Long DO [Primary Care Provider] - Test Results: Test results from this visit will be discussed in further detail at your follow- up appointment, if applicable. Please Follow Up With: Dominik García NP-C When: 12/15 at 1030
--- NOTE | 2018-12-06 10:00 | EKG12_ITS ---
Test Reason : PCI Blood Pressure : / mmHG Vent. Rate : 062 BPM Atrial Rate : 062 BPM P-R Int : 178 ms QRS Dur : 090 ms QT Int : 390 ms P-R-T Axes : 038 029 072 degrees QTc Int : 395 ms Normal sinus rhythm Normal ECG No previous ECGs available Confirmed by LUCI PEREZ, DESIRAE ([id number]), editor continuity and script KARTHIKEYAN PRESTON ([id number]) on 12/10/2018 2:02:59 PM Referred By: Nikki Long Confirmed By:DESIRAE VERMA MD
--- NOTE | 2018-12-07 08:54 | PCM.DC.SUM ---
Discharge Date and Diagnosis Date of Admission: 12/05/18 Date of Discharge: 12/06/18 - Primary Discharge Diagnosis #1 occlusive coronary artery disease to LAD #2 hyperlipidemia #3 hypertension Hospital Course and Treatment Operations: None Procedures: Cardiac catheterization, - - Stress echocardiogram Summary of Care Provided: The patient is a 58 year old M who was admitted to [facility] after undergoing an echo stress which was positive and then undergoing a cardiac catheterization which showed occlusive coronary artery disease in the LAD. Patient underwent stent placement in the LAD and was subsequently admitted to ICU. Patient's hospital course was uneventful with no complications. On 12/06/18, patient was seen and examined: On examination he appeared in good health and spirits. Vital signs as documented. Skin warm and dry and without overt rashes. Neck without JVD. Lungs clear. Heart exam notable for regular rhythm, normal sounds and absence of murmurs, rubs or gallops. Abdomen unremarkable and without evidence of organomegaly, masses, or abdominal aortic enlargement. Extremities nonedematous. Neuro: Cranial nerves II through XII are grossly intact, no focal motor deficits were noted, sensation to light touch and pinprick intact. Psych: Patient is alert and oriented x3, he does not appear anxious or depressed On 12/06/18, patient was seen and examined and felt to be in stable condition for discharge home - Physical Exam Vital Signs Temp Pulse Resp BP Pulse Ox 97.1 F L 58 L 14 147/87 H 96 12/06/18 08:00 12/06/18 08:00 12/06/18 08:00 12/06/18 08:00 12/06/18 08:00 Oxygen Delivery Method Room Air Weight: 118.6 kg Body Mass Index (BMI) 37.4 Intake and Output for Last 24 Hours 12/05/18 12/06/18 12/07/18 23:59 23:59 23:59 Intake Total 104 / 104 1476 / 1476 Balance 104 / 104 1476 / 1476 Discharge Diet: Low fat/ Low Cholesterol Discharge Activity: Return to Normal Activity May shower in (days): 1 Weight Bearing Status: Full weight bearing Call your doctor if your incision/area has: Continuous Slow Oozing, Sudden Increased Bleeding, Increased Pain/ Swelling, Increased Redness, Foul Smelling Discharge, Swelling at the incision site Call your doctor if you observe: Fever of 101 or Higher, Shortness of breath, Chest pain Remove Dressing in (days):: 1 Home Medications: Medications to take at Discharge Aspirin 81 mg PO DAILY 12/05/18 Aspirin E.C. [Ecotrin] 81 mg PO DAILY@0800 tablet 12/06/18 Atorvastatin Calcium [Lipitor] 80 mg PO QHS tablet 12/06/18 Losartan Potassium [Cozaar] 25 mg PO DAILY tablet 12/06/18 Metoprolol Tartrate [Lopressor (beta elidia)] 12.5 mg PO BID tablet 12/06/18 Ticagrelor [Brilinta] 90 mg PO BID tablet 12/06/18 Other Amb Orders: Phase II, Outpatient Cardiac Rehab Location: None Selected Primary Care Physician: Nikki Long DO [Primary Care Provider] - Please Follow Up With: Dominik Bee [employer]AY SUPERVISOR-C When: 12/15 at 1030 Additional Instructions: You were started on an antiplatelet to help keep your stents open. You will need to stay on this medication for at least one year Prior to discontinuing. You are scheduled to see Dominik bee nurse practitioner at the [facility] on December 15 at 1030 for a follow-up on your heart catheterization. Our office phone number is [phone] if you have any questions. Disposition: Home Minutes spent on discharge:: 32 Patient Condition:: Stable Medical Necessity - Tobacco Use Smoking Status: Never smoker Meaningful Use Info Meaningful Use Diagnoses (Choose all that apply): None applicable Code Visit Inpatient E&M: 29917 Disch Hosp
--- NOTE | 2018-12-07 08:58 | DS.PCM_ITS ---
Discharge Date and Diagnosis Date of Admission: 12/05/18 Date of Discharge: 12/06/18 - Primary Discharge Diagnosis #1 occlusive coronary artery disease to LAD #2 hyperlipidemia #3 hypertension Hospital Course and Treatment Operations: None Procedures: Cardiac catheterization, - - Stress echocardiogram Summary of Care Provided: The patient is a 58 year old M who was admitted to [facility] after undergoing an echo stress which was positive and then undergoing a cardiac catheterization which showed occlusive coronary artery disease in the LAD. Patient underwent stent placement in the LAD and was subsequently admitted to ICU. Patient's hospital course was uneventful with no complications. On 12/06/18, patient was seen and examined: On examination he appeared in good health and spirits. Vital signs as documented. Skin warm and dry and without overt rashes. Neck without JVD. Lungs clear. Heart exam notable for regular rhythm, normal sounds and absence of murmurs, rubs or gallops. Abdomen unremarkable and without evidence of organomegaly, masses, or abdominal aortic enlargement. Extremities nonedematous. Neuro: Cranial nerves II through XII are grossly intact, no focal motor deficits were noted, sensation to light touch and pinprick intact. Psych: Patient is alert and oriented x3, he does not appear anxious or depressed On 12/06/18, patient was seen and examined and felt to be in stable condition for discharge home - Physical Exam Vital Signs Temp Pulse Resp BP Pulse Ox 97.1 F L 58 L 14 147/87 H 96 12/06/18 08:00 12/06/18 08:00 12/06/18 08:00 12/06/18 08:00 12/06/18 08:00 Oxygen Delivery Method Room Air Weight: 118.6 kg Body Mass Index (BMI) 37.4 Intake and Output for Last 24 Hours 12/05/18 12/06/18 12/07/18 23:59 23:59 23:59 Intake Total 104 / 104 1476 / 1476 Balance 104 / 104 1476 / 1476 Discharge Diet: Low fat/ Low Cholesterol Discharge Activity: Return to Normal Activity May shower in (days): 1 Weight Bearing Status: Full weight bearing Call your doctor if your incision/area has: Continuous Slow Oozing, Sudden Increased Bleeding, Increased Pain/ Swelling, Increased Redness, Foul Smelling Discharge, Swelling at the incision site Call your doctor if you observe: Fever of 101 or Higher, Shortness of breath, Chest pain Remove Dressing in (days):: 1 Home Medications: Medications to take at Discharge Aspirin 81 mg PO DAILY 12/05/18 Aspirin E.C. [Ecotrin] 81 mg PO DAILY@0800 tablet 12/06/18 Atorvastatin Calcium [Lipitor] 80 mg PO QHS tablet 12/06/18 Losartan Potassium [Cozaar] 25 mg PO DAILY tablet 12/06/18 Metoprolol Tartrate [Lopressor (beta elidia)] 12.5 mg PO BID tablet 12/06/18 Ticagrelor [Brilinta] 90 mg PO BID tablet 12/06/18 Other Amb Orders: Phase II, Outpatient Cardiac Rehab Location: None Selected Primary Care Physician: Nikki Long DO [Primary Care Provider] - Please Follow Up With: Dominik Bee NEEDLE P[employer]CH MACHINE OPERATOR-C When: 12/15 at 1030 Additional Instructions: You were started on an antiplatelet to help keep your stents open. You will need to stay on this medication for at least one year Prior to discontinuing. You are scheduled to see Dominik bee nurse practitioner at the [place] [facility] on December 15 at 1030 for a follow-up on your heart catheterization. Our office phone number is [phone] if you have any questions. Disposition: Home Minutes spent on discharge:: 32 Patient Condition:: Stable Medical Necessity - Tobacco Use Smoking Status: Never smoker Meaningful Use Info Meaningful Use Diagnoses (Choose all that apply): None applicable Code Visit Inpatient E&M: 30773 Disch Hosp
== END 2018-12-06 11:15 | disposition home or self-care (01) ==
LOC: CVS 16:56 → ICU 16:56
PROVIDERS: Internal Medicine Cardiovascular Disease; Family Provider Internal Medicine; PCP Internal Medicine; Referring Provider Internal Medicine; Visit Provider Internal Medicine
DX: I25.110 Atherosclerotic heart disease of native coronary artery with unstable angina pectoris (principal); I10 Essential (primary) hypertension; E78.5 Hyperlipidemia, unspecified; R94.39 Abnormal result of other cardiovascular function study; Z95.5 Presence of coronary angioplasty implant and graft; E66.9 Obesity, unspecified; Z68.37 Body mass index [BMI] 37.0-37.9, adult; Z79.82 Long term (current) use of aspirin; Z79.01 Long term (current) use of anticoagulants; Z79.899 Other long term (current) drug therapy; Z82.49 Family history of ischemic heart disease and other diseases of the circulatory system
CPT/HCPCS: 36415; 80048; 80061; 83036; 85027; 85347; 85610; 85730; 92928; 93005; 93017; 93306; 93350; 93458; C1760; J7030; J7040; Q9957; Q9967; A4216; C1725; C1757; C1769; C1874; C1887; C1894; C8928; C8929; C9600

== ENCOUNTER → 2018-12-23 11:42 | Outpatient (CLI) | payer OTHER, SELFPAY ==
[2018-12-05 16:36] VITALS: BMI 37.4
[2018-12-15 11:12] VITALS: BMI 37.4
--- NOTE | 2018-12-23 12:29 | PCM.CR.HP2 ---
CR - History & Physical - General Arrival date:: 12/23/18 Arrival time:: 12:00 Date of Referral:: 12/05/18 Date of CR Evaluation:: 12/23/18 Referring Physician: Dr. Loyd Jama Primary Diagnosis: PTCA w/ stent - History of Present Cardiac Event Onset Date: Enter Onset Date of cardiac illnesses in Comment field below Acute Myocardial Infarction within 12 months:: No PTCA or coronary stenting:: Yes - 12/05/2018 Heart Failure EF <35%:: No Type of Symptoms:: Shortness of breath on exertion, felt like had an extreme workout but hadn't done anything to feel it. Interventions with present event:: Stress Echo and immediately over to the laborer salvage for heart cath and PCI int Were there any complications?: none - Medications Home Medications: Ambulatory Orders Medication Instructions Recorded Aspirin 81 mg PO DAILY 12/05/18 atorvastatin 80 mg tablet 80 mg PO QHS #90 tab 12/15/18 losartan 25 mg tablet 25 mg PO DAILY #90 tab 12/15/18 metoprolol tartrate 25 mg tablet 12.5 mg PO BID #90 tab 12/15/18 ticagrelor 90 mg tablet 90 mg PO BID #180 tab 12/15/18 - Allergies Allergies/Adverse Reactions: Allergies Latex, Natural Rubber Allergy (Verified 12/15/18 10:34) Rash - Sleep Disorder Evaluation Hx of Sleep Apnea: Yes Do you snore loudly (louder than talking or can be heard through closed doors)?: Yes - CPAP jairo he has used for 8 year Do you often feel tired/ fatigued/ sleepy during daytime?: No Has anyone observed you stop breathing during sleep?: No History of Hypertension (for STOP score): Yes STOP Results: Positive Advanced Directives - Advanced Directives Power of Station Tender: Yes - on file with interior design faculty member Living Will: Yes Advance Directives Information Provided: No Advance Directives on File: No DNR Order?:: No - MOLST See MOLST form: No Past Medical History - Past Medical Illness Medical History: Past Medical History (Last Updated 12/15/18 @ 15:05 by Dominik García NP-C) Essential (primary) hypertension (Chronic) I10 CAD (coronary artery disease) (Chronic) I25.10 Successful PTCA/THU mid LAD with a 3.5 x 38 Promus Synergy, post dilated throughout with a 3.5 x 12 NC ballloon at 18 atim; 99%-->0%, no dissection. Successful PTCA/THU distal LAD with a 2.5 x 32 Promus Synergy, post dilated with a 2.5 x 12 NC Balloon 75%-->0%, no dissection. Arthritis M19.90 - Past Surgical History Surgical History: Past Surgical History (Last Updated 12/15/18 @ 10:39 by Mary Jama) H/O heart artery stent Z95.5 - Family History Summary Family History: Family History (Last Updated 12/15/18 @ 10:40 by Mary Jama) Grandfather Heart disease Father Heart disease Grandmother Heart disease Other MOTHER Social History - Smoking History Smoking Status: Never smoker Hx Tobacco Use: No Hx Smoking Exposure: Yes - mother smoked as child - Alcohol Use Alcohol Usage: Yes - occasional - Substance Abuse Hx Substance Use: No - Occupation Occupation (List type of work in comments):: Employed Hours worked per day:: 6 - varies total 35-40 hours week - Hobbies, Recreation, Social Activities Hobbies: Other - biking, [employer] motorcycles, gym exercise, fishing. Recreational Activities: I am able to engage in most, but not all activities - can do all but not at the level he would like to be at. Social Environment - Status Marital Status: - Current Living Arrangements Living Environment:: Spouse - Children How many children do you have?: 1 Do any of your children live nearby?: Yes - [place] - Safety Do you feel safe in your surroundings?: Yes - Assistance Do you need any assistance at home?: none Review of Systems - Review of Systems Hints: Right click = Denies (Slash). Left click = Reports ([place]) Review of Present Symptoms: Reports: Dizziness/Lightheadedness - borderline; feel might be medications, Fatigue, Appetite - Normal, Sleep - Normal. Denies: Shortness of Breath at Rest, Shortness of Breath with Exertion, Angina, Heart Arrhythmia/Irregularities, Appetite - Special Diet, Sexual Changes - Pain Is Patient Pain Free?: No Pain Location: none Pain Level: 0/10 Risk Factor Assessment - Chief Complaint Chief Complaint: Patient presents to CR today following recent evaluation of shortness of breath which lead to a stent placement following his stress echo on 12/05/2018 here at [facility]. - Vital Signs Temperature: 98.7 F Respiratory Rate: 18 Blood Pressure: 132/78 - Pulse Pulse Rate: 68 - Hypertension Blood Pressure Sitting - Left Arm: 128/74 - at rest - Blood Cholesterol/Lipids Total Cholesterol (mg/dL) Goal = less than 200 mg/dL: 184 HDL Cholesterol (mg/dL) Goal = less than 40 mg/dL: 27 LDL Cholesterol (mg/dL) Goal = less than 70 mg/dL: 123 Triglycerides (mg/dL) Goal = less than 150 mg/dL: 171 - Diabetes Nutrition Referral for Diabetes: No - Obesity Height: 5 ft 10 in Weight:: 252 lb 3.2 oz Weight in Pounds: 252.2 lbs Weight Source: Standing Scale Body Mass Index (BMI): 36.1 Nutritional Referral for Obesity: No - Physical Inactivity Physical Inactivity: None - Risk Stratification Risk Guidelines: Lowest Risk: Risk Factor for Smoking, Risk Factor for Dyslipidemia, Risk Factor for Diabetes, Risk Factor for Hypertension, Risk Factor for Sedentary Lifestyle, Risk Factor for Depression, Highest Risk: Risk Factor for Obesity - For Smoking Smoking Risk Guidelines: Smoking Low Risk: None or quit greater than 6 months ago. Smoking Moderate Risk: Smoker or quit 6 months or less ago. Smoking High Risk: Smoker - For Dyslipidemia Dyslipidemia Risk Guidelines: Low Risk: Moderate Risk: High Risk: 15-25% fat 25.1-29% fat >/= 30% fat. <7% sat fat 7-9% sat fat >9% sat fat. <150 mg chol 150-299 mg chol >/= 300 mg chol. LDL <100 LDL 100-129 LDL >/= 130. Chol/HDL ratio <5.0 Chol/HDL ratio 5.0-6.0 Chol/HDL ratio >6.0. Triglycerides <100 Triglycerides 100-149 Triglycerides >/= 150 - For Diabetes Mellitus Diabetes Risk Guidelines: Diabetes Low Risk: HgA1c <6.5% and/or FBG <120. Diabetes Moderate Risk: HgA1c 6.6-7.9% and/or FBG 120-180. Diabetes High Risk: HgA1c >/= 8% and/or FBG >180 - For Obesity/Overweight Obesity/Overweight Risk Guidelines: Obesity Low Risk: BMI <25.0. Obesity Moderate Risk: BMI 25-29.9. Obesity High Risk: BMI >/= 30.0 - For Hypertension Hypertension Risk Guidelines: Hypertension Low Risk: Systolic <120 and Diastolic <80. Hypertension Moderate Risk: Systolic 120-139 and Diastolic 80-89. Hypertension High Risk: Systolic >/= 140 and Diastolic >/= 90 - For Sedentary Lifestyle Sedentary Lifestyle Risk Guidelines: Sedentary Lifestyle Low Risk: >/= 1,500 kcal/week. Sedentary Lifestyle Moderate Risk: 700-1,499 kcal/week. Sedentary Lifestyle High Risk: < 700 kcal/week - For Depression Depression Risk Guidelines: Depression Low Risk: Not clinically depressed. Depression Moderate Risk: Mildly depressed. Depression High Risk: Clinically depressed - Family History Family History: Family History (Last Updated 12/15/18 @ 10:40 by Mary Jama) Grandfather Heart disease Father Heart disease Grandmother Heart disease Other MOTHER Motivation - Motivation to Participate On a scale of 1 to 10, how prepared are you to commit to attending program?: 8 What do you see as barriers to successfully being able to complete the program?: scheduling perhaps What do you see as the benefits of succesfully completing the program? In other words, what do you hope to get out of participating in the program?: biggest is being monitored while exercising so he can return to exercise Are there issues you are dealing with that will interfere with completing the program?: none Do you have a spouse or signficant other, family or friends who will help support you to complete the program?: yes
--- NOTE | 2018-12-23 12:34 | CR.HP_ITS ---
CR - History & Physical - General Arrival date:: 12/23/18 Arrival time:: 12:00 Date of Referral:: 12/05/18 Date of CR Evaluation:: 12/23/18 Referring Physician: Dr. Loyd Jama Primary Diagnosis: PTCA w/ stent - History of Present Cardiac Event Onset Date: Enter Onset Date of cardiac illnesses in Comment field below Acute Myocardial Infarction within 12 months:: No PTCA or coronary stenting:: Yes - 12/05/2018 Heart Failure EF <35%:: No Type of Symptoms:: Shortness of breath on exertion, felt like had an extreme workout but hadn't done anything to feel it. Interventions with present event:: Stress Echo and immediately over to the mason tender restoration labor for heart cath and PCI int Were there any complications?: none - Medications Home Medications: Ambulatory Orders Medication Instructions Recorded Aspirin 81 mg PO DAILY 12/05/18 atorvastatin 80 mg tablet 80 mg PO QHS #90 tab 12/15/18 losartan 25 mg tablet 25 mg PO DAILY #90 tab 12/15/18 metoprolol tartrate 25 mg tablet 12.5 mg PO BID #90 tab 12/15/18 ticagrelor 90 mg tablet 90 mg PO BID #180 tab 12/15/18 - Allergies Allergies/Adverse Reactions: Allergies Latex, Natural Rubber Allergy (Verified 12/15/18 10:34) Rash - Sleep Disorder Evaluation Hx of Sleep Apnea: Yes Do you snore loudly (louder than talking or can be heard through closed doors)?: Yes - CPAP jairo he has used for 8 year Do you often feel tired/ fatigued/ sleepy during daytime?: No Has anyone observed you stop breathing during sleep?: No History of Hypertension (for STOP score): Yes STOP Results: Positive Advanced Directives - Advanced Directives Power of Bundle Tier And Labeler: Yes - on file with election supervisor Living Will: Yes Advance Directives Information Provided: No Advance Directives on File: No DNR Order?:: No - MOLST See MOLST form: No Past Medical History - Past Medical Illness Medical History: Past Medical History (Last Updated 12/15/18 @ 15:05 by Dominik García NP-C) Essential (primary) hypertension (Chronic) I10 CAD (coronary artery disease) (Chronic) I25.10 Successful PTCA/THU mid LAD with a 3.5 x 38 Promus Synergy, post dilated throughout with a 3.5 x 12 NC ballloon at 18 atim; 99%-->0%, no dissection. Successful PTCA/THU distal LAD with a 2.5 x 32 Promus Synergy, post dilated with a 2.5 x 12 NC Balloon 75%-->0%, no dissection. Arthritis M19.90 - Past Surgical History Surgical History: Past Surgical History (Last Updated 12/15/18 @ 10:39 by Mary Jama) H/O heart artery stent Z95.5 - Family History Summary Family History: Family History (Last Updated 12/15/18 @ 10:40 by Mary Jama) Grandfather Heart disease Father Heart disease Grandmother Heart disease Other MOTHER Social History - Smoking History Smoking Status: Never smoker Hx Tobacco Use: No Hx Smoking Exposure: Yes - mother smoked as child - Alcohol Use Alcohol Usage: Yes - occasional - Substance Abuse Hx Substance Use: No - Occupation Occupation (List type of work in comments):: Employed Hours worked per day:: 6 - varies total 35-40 hours week - Hobbies, Recreation, Social Activities Hobbies: Other - biking, [employer] motorcycles, gym exercise, fishing. Recreational Activities: I am able to engage in most, but not all activities - can do all but not at the level he would like to be at. Social Environment - Status Marital Status: - Current Living Arrangements Living Environment:: Spouse - Children How many children do you have?: 1 Do any of your children live nearby?: Yes - [place] - Safety Do you feel safe in your surroundings?: Yes - Assistance Do you need any assistance at home?: none Review of Systems - Review of Systems Hints: Right click = Denies (Slash). Left click = Reports ([place]) Review of Present Symptoms: Reports: Dizziness/Lightheadedness - borderline; feel might be medications, Fatigue, Appetite - Normal, Sleep - Normal. Denies: Shortness of Breath at Rest, Shortness of Breath with Exertion, Angina, Heart Arrhythmia/Irregularities, Appetite - Special Diet, Sexual Changes - Pain Is Patient Pain Free?: No Pain Location: none Pain Level: 0/10 Risk Factor Assessment - Chief Complaint Chief Complaint: Patient presents to CR today following recent evaluation of shortness of breath which lead to a stent placement following his stress echo on 12/05/2018 here at [facility]. - Vital Signs Temperature: 98.7 F Respiratory Rate: 18 Blood Pressure: 132/78 - Pulse Pulse Rate: 68 - Hypertension Blood Pressure Sitting - Left Arm: 128/74 - at rest - Blood Cholesterol/Lipids Total Cholesterol (mg/dL) Goal = less than 200 mg/dL: 184 HDL Cholesterol (mg/dL) Goal = less than 40 mg/dL: 27 LDL Cholesterol (mg/dL) Goal = less than 70 mg/dL: 123 Triglycerides (mg/dL) Goal = less than 150 mg/dL: 171 - Diabetes Nutrition Referral for Diabetes: No - Obesity Height: 5 ft 10 in Weight:: 252 lb 3.2 oz Weight in Pounds: 252.2 lbs Weight Source: Standing Scale Body Mass Index (BMI): 36.1 Nutritional Referral for Obesity: No - Physical Inactivity Physical Inactivity: None - Risk Stratification Risk Guidelines: Lowest Risk: Risk Factor for Smoking, Risk Factor for Dyslipidemia, Risk Factor for Diabetes, Risk Factor for Hypertension, Risk Factor for Sedentary Lifestyle, Risk Factor for Depression, Highest Risk: Risk Factor for Obesity - For Smoking Smoking Risk Guidelines: Smoking Low Risk: None or quit greater than 6 months ago. Smoking Moderate Risk: Smoker or quit 6 months or less ago. Smoking High Risk: Smoker - For Dyslipidemia Dyslipidemia Risk Guidelines: Low Risk: Moderate Risk: High Risk: 15-25% fat 25.1-29% fat >/= 30% fat. <7% sat fat 7-9% sat fat >9% sat fat. <150 mg chol 150-299 mg chol >/= 300 mg chol. LDL <100 LDL 100-129 LDL >/= 130. Chol/HDL ratio <5.0 Chol/HDL ratio 5.0-6.0 Chol/HDL ratio >6.0. Triglycerides <100 Triglycerides 100-149 Triglycerides >/= 150 - For Diabetes Mellitus Diabetes Risk Guidelines: Diabetes Low Risk: HgA1c <6.5% and/or FBG <120. Diabetes Moderate Risk: HgA1c 6.6-7.9% and/or FBG 120-180. Diabetes High Risk: HgA1c >/= 8% and/or FBG >180 - For Obesity/Overweight Obesity/Overweight Risk Guidelines: Obesity Low Risk: BMI <25.0. Obesity Moderate Risk: BMI 25-29.9. Obesity High Risk: BMI >/= 30.0 - For Hypertension Hypertension Risk Guidelines: Hypertension Low Risk: Systolic <120 and Diastolic <80. Hypertension Moderate Risk: Systolic 120-139 and Diastolic 80-89. Hypertension High Risk: Systolic >/= 140 and Diastolic >/= 90 - For Sedentary Lifestyle Sedentary Lifestyle Risk Guidelines: Sedentary Lifestyle Low Risk: >/= 1,500 kcal/week. Sedentary Lifestyle Moderate Risk: 700-1,499 kcal/week. Sedentary Lifestyle High Risk: < 700 kcal/week - For Depression Depression Risk Guidelines: Depression Low Risk: Not clinically depressed. Depression Moderate Risk: Mildly depressed. Depression High Risk: Clinically depressed - Family History Family History: Family History (Last Updated 12/15/18 @ 10:40 by Mary Jama) Grandfather Heart disease Father Heart disease Grandmother Heart disease Other MOTHER Motivation - Motivation to Participate On a scale of 1 to 10, how prepared are you to commit to attending program?: 8 What do you see as barriers to successfully being able to complete the program?: scheduling perhaps What do you see as the benefits of succesfully completing the program? In other words, what do you hope to get out of participating in the program?: biggest is being monitored while exercising so he can return to exercise Are there issues you are dealing with that will interfere with completing the program?: none Do you have a spouse or signficant other, family or friends who will help support you to complete the program?: yes
[2018-12-23 12:44] VITALS: BP 128/74; BP 132/78; PULSE 68; RESP 18; TEMP 37.1; BMI 36.1
--- NOTE | 2018-12-23 14:00 | PCM.CR.ITP ---
General Information - General Information Admitting Diagnosis: PCI W/STENT - Education/Goals Barriers to Learning: None Individual Counseling: Initial Assessment: Abnormal Cholesterol Levels, High Blood Pressure, Overweight/Obesity Cardiac Rehabilitation Goals: 1. Maintain the individual as the primary focus of care. 2. To improve the patient's quality of life. 3. Identification of cardiac risk factors and provide cardiac risk factor management. 4. Enhance the psychosocial status of the patient. 5. Reconditioning enough to allow the patient to resume customary activities. 6. Control symptoms of cardiac disease Scale for measuring improvement of personal goals: Enter appropriate number in Comments. 2 = Unchanged. 3 = Slightly Better. 4 = Moderate Improvement. 5 = Met my Goal Personal Goals: Initial Assessment: Improve energy level, Participate in home exercise program, Get back to work, or to resume activities faster, Control risk factors (learn risk factor modification), Other goal: - RETURN TO RIDING BIKE Exercise - Initial Assessment - Visit Date of Eval: 12/23/18 - Stages of Change Stages of Change:: Action - Physician Prescribed Exercise Modalities: Treadmill, Rower, Airdyne, NuStep Frequency (days/week): 3x/week for 12 weeks [36 sessions] Duration (Minutes):: 30-45 Intensity: 60-80% age predicted maximum heart rate reserve METs - Progression: 0.5-1.0 MET, RPE 11-14 WEEK: 2.5 Target Heart Rate:: 114-130 - Hypertension Do any of the following apply?: Yes Resting Blood Pressure:: 132/78 - Intervention Home Exercise/Activity Goal:: Moderate Exercise 30 min/day x 5 days/wk - Education Goals:: Warm-up, RPE DIGNA Scale, S/S, Safe Exercise, Self-Monitoring - Exercise Program Goals Exercise Program Goals: Aerobic Activity >30 min Nutrition - Initial Assessment - Program Goals Nutrition Program Goals: LDL <70. Total Cholesterol <200. HDL >45. Triglycerides <150. HgbA1C <7%. BMI <25 - Visit Date of Assessment:: 12/23/18 - Stages of Change Stages of Change:: Action - Lipids Total Cholesterol (mg/dL) Goal = less than 200 mg/dL: 184 HDL Cholesterol (mg/dL) Goal = less than 45 mg/dL: 27 LDL Cholesterol (mg/dL) Goal = less than 70 mg/dL: 123 Triglycerides (mg/dL) Goal = less than 150 mg/dL: 171 - Diabetes Diabetes:: No Insulin: No Non-Insulin Dependent?: No Do you monitor your blood sugar at home?: Yes - Weight Management Height: 5 ft 10 in Weight:: 253 lb Body Fat %:: 36.3 - Intervention Referral to dietitian:: No Referral to Diabetic Clinic:: No Will attend diet classes:: Yes - Education Gave educational materials for:: Healthy eating Tobacco - Initial Assessment - Program Goals Tobacco Program Goals: Complete smoking cessation. Attend education classes. Improve Knowledge Test score - Stage of Change Stages of Change:: Action - Learning Barriers Learning Barriers: Ready to Learn - Family Support Do you have family support?: Yes - Tobacco Use Tobacco Use: Non-smoker Do you use smokeless tobacco?: No - Intervention Smoking Cessation Referral:: No Individual Education/Counseling:: No Education Schedule Given:: Yes - Education Gave educational material for:: Coronary artery disease, Risk factors, Sexuality, Medical compliance, Cardiac A&P, Angina signs & symptoms Psychosocial - Initial Assess - Target Goals Target Goals: Assess presence or absence of depression. Using a valid screening tool, maximizes coping skills. Positive support system - Stages of Change Stages of Change:: Action - Psychosocial Test Tool Used:: HANDS Depression Questionnaire - Intervention PS - Interventions: Yes Attend Stress Management Classes, No Referral to Mental Health, No Referral to [facility] Case Management, No Referral to Physician, No Uses Stress Management Skills - Education Gave educational materials for:: Coping techniques, Signs & symptoms of depression, Stress management, Relaxation techniques - Patient/Program Goal Preventative Medication(s):: Aspirin, Clopidogrel, Beta elidia, Statin/lipid - Assistive Devices Assistive Devices:: None Fall Risk Assessed:: Yes Patient Health Questionnaire Initial Assessment 1. Little interest or pleasure in doing things: Not at all 2. Feeling down, depressed, or hopeless: Not at all 3. Trouble falling or staying asleep, or sleeping too much: Not at all 4. Feeling tired or having little energy: Several days 5. Poor appetite or overeating: Not at all 6. Feeling bad about yourself -- or that you are a failure or have let yourself or your family down: Not at all 7. Trouble concentrating on things, such as reading the newspaper or watching television: Not at all 8. Moving or speaking so slowly that other people could have noticed. Or the opposite - being so fidgety or restless that you have been moving around a lot more than usual: Not at all 9. Thoughts that you would be better off , or of hurting yourself in some way: Not at all How difficult have these problems made it for you to do your work, take care of things at home, or get along with other people?: Not difficult at all Total Score: 1 ROBERTO-Q SV Test - Statements CAD is a disease of the arteries in the heart: False Examples of risk factors for heart disease: True Angina is chest pain or discomfort: True The benefits of resistance training include: True Eating more meat and dairy products: False Anti-platelet medications such as aspirin are important: True The only effective way to manage stress: False An exercise warm-up slowly increases heart rate: True Prepared, processed foods usually have high sodium: True Depression is common after a heart attack: True The statin medications lower cholesterol: True To control blood pressure, lower the amount of sodium: True If someone gets chest discomfort during walking: False Transfats are partially hydrogenated vegetable oils: True Sleep apnea that is not treated increases the risk: False To control cholesterol, one should become a vegetarian: True Someone knows if he/she is exercising at the right level: True Diabetes cannot be prevented with exercise & health eating: True Stress is a large risk for heart attack: True A diet that can help lower blood pressure is rich in: True - Total Score Total Correct Responses: 18 Self-Efficacy Initial Assessment We would like to know how confident you are in doing certain activities. Please select your confidence level for:: Select your confidence level for the following using the scale 1-10 where 1 is not at all confident and 10 is totally confident. Your score is the average of all 6 responses. Fatigue: How confident are you that you can keep the fatigue caused by your disease from interfering with the things you want to do? Select Number: 5 Physical Discomfort or Pain: How confident are you that you can keep the physical discomfort or pain of your disease from interfering with the things you want to do? Select Number: 9 Emotional Distress: How confident are you that you can keep the emotional distress caused by your disease from interfering with the things you want to do? Select Number: 9 Other Symptoms or Health Problems: How confident are you that you can keep other symptoms or health problems from interfering with the things you want to do? Select Number: 5 Different Tasks and Activities: How confident are you that you can do the different tasks and activities needed to manage your health condition so as to reduce your need to see a doctor? Select Number: 9 Medication: How confident are you that you can do things other than just taking medication to reduce how much your illness affects your everyday life? Select Number: 9 Total Score:: 7 Nutrition Survey - Nutrition Survey Instructions Scoring Instructions: Scoring is as follows: Yes = 1 points. No = 0 point. Patient score that is >/=12 is considered to be at potential nutritional risk and could benefit from a referral to a registered dietitian. - Nutrition Survey Initial Have you lost >10 lbs over the past 2 months without trying?: No Are you following a special diet at home for diabetes, low fat, or low salt?: No Are you interested in meeting with a dietitian for help understanding your diet?: No Do you eat less than 3 meals a day?: No Do you eat fatty meats ([place], sausage, ribs, etc), fried foods, desserts, large amounts of salad dressings, margarine, butter, or cheese most days?: No Do you have food allergies? [Enter types in comment field]: No Do you eat in restaurants more than 3 times a week?: No Do you season food with salt, seasoning salt, or garlic salt?: Yes Do you used canned, boxed, frozen meals, or soups, seasoning packets?: No Total Score:: 1
[2018-12-23 14:07] VITALS: BP 132/78
== END ==
PROVIDERS: Family Provider Internal Medicine; PCP Internal Medicine; Referring Provider Internal Medicine Cardiovascular Disease; Visit Provider Internal Medicine Cardiovascular Disease
DX: Z95.5 Presence of coronary angioplasty implant and graft (principal)

== ENCOUNTER 2019-01-23 08:00 | Outpatient (RCR) | payer OTHER, SELFPAY ==
[2018-12-23 12:44] VITALS: BMI 36.1
--- NOTE | 2019-01-21 11:17 | CR.ITP_ITS ---
General Information - General Information Admitting Diagnosis: PCI - Education/Goals Barriers to Learning: None Cardiac Rehabilitation Goals: 1. Maintain the individual as the primary focus of care. 2. To improve the patient's quality of life. 3. Identification of cardiac risk factors and provide cardiac risk factor management. 4. Enhance the psychosocial status of the patient. 5. Reconditioning enough to allow the patient to resume customary activities. 6. Control symptoms of cardiac disease Scale for measuring improvement of personal goals: Enter appropriate number in Comments. 2 = Unchanged. 3 = Slightly Better. 4 = Moderate Improvement. 5 = Met my Goal Exercise - 30-day Assessment - Visit Date of Eval: 01/21/19 Session #:: 11 - Stages of Change Stages of Change:: Action - Physician Prescribed Exercise Modalities: Treadmill, Rower, Airdyne Frequency (days/week): 3 Duration (Minutes):: 30-45 Intensity: 60-80% age predicted maximum heart rate reserve METs - Progression: 0.5-1.0 MET, RPE 11-14 WEEK: 5.5 Target Heart Rate:: 114-130 Max HR 131 - Hypertension Resting Blood Pressure:: 128/68 Peak Exercise Blood Pressure:: 160/80 Medication Changes:: No - Intervention Home Exercise/Activity Goal:: Sitting Time <3 hrs/day - Education Goals:: Warm-up, RPE DIGNA Scale, S/S, Safe Exercise, Self-Monitoring - Exercise Program Goals Exercise Program Goals: Aerobic Activity >30 min, B/P <130/80 Nutrition - 30-Day Assessment - Program Goals Nutrition Program Goals: LDL <70. Total Cholesterol <200. HDL >45. Triglycerides <150. HgbA1C <7%. BMI <25 - Visit Date of Eval: 01/21/19 - Stages of Change Stages of Change:: Action - Weight Management Weight:: 111.584 kg - Intervention Referral to dietitian:: No Referral to Diabetic Clinic:: No Will attend diet classes:: Yes - Education Attended class for:: Signs & symptoms of hypoglycemia, Signs & symptoms of hyperglycemia, Relate diabetes to coronary artery disease, Healthy eating Tobacco - 30-Day Assessment - Program Goals Tobacco Program Goals: Complete smoking cessation. Attend education classes. Improve Knowledge Test score - Stage of Change Stages of Change:: Action - Learning Barriers Learning Barriers: Participates in education - Family Support Do you have family support?: Yes - Intervention Smoking Cessation Referral:: No Individual Education/Counseling:: No Education Schedule Given:: Yes - Education Attended class for:: Tobacco triggers, Coronary artery disease, Risk factors, Sexuality, Medical compliance, Cardiac A&P, Angina signs & symptoms Psychosocial - 30-Day Assess - Target Goals Target Goals: Assess presence or absence of depression. Using a valid screening tool, maximizes coping skills. Positive support system - Stages of Change Stages of Change:: Action - Psychosocial Test Tool Used:: HANDS Depression Questionnaire - Intervention PS - Interventions: Yes Attend Stress Management Classes, Yes Uses Stress Management Skills, No Referral to Mental Health, No Referral to [facility] Case Management, No Referral to Physician - Education Attended classes for:: Coping techniques, Signs & symptoms of depression, Stress management, Relaxation techniques - Assistive Devices Assistive Devices:: None Fall Risk Assessed:: Yes Patient Health Questionnaire 30-Day Re-eval Assessment 1. Little interest or pleasure in doing things: Not at all 2. Feeling down, depressed, or hopeless: Not at all 3. Trouble falling or staying asleep, or sleeping too much: Not at all 4. Feeling tired or having little energy: Several days 5. Poor appetite or overeating: Not at all 6. Feeling bad about yourself -- or that you are a failure or have let yourself or your family down: Not at all 7. Trouble concentrating on things, such as reading the newspaper or watching television: Not at all 8. Moving or speaking so slowly that other people could have noticed. Or the opposite - being so fidgety or restless that you have been moving around a lot more than usual: Not at all 9. Thoughts that you would be better off , or of hurting yourself in some way: Not at all How difficult have these problems made it for you to do your work, take care of things at home, or get along with other people?: Not difficult at all Total Score: 1 Self-Efficacy 30-Day Re-eval Assessment We would like to know how confident you are in doing certain activities. Please select your confidence level for:: Select your confidence level for the following using the scale 1-10 where 1 is not at all confident and 10 is totally confident. Your score is the average of all 6 responses. Fatigue: How confident are you that you can keep the fatigue caused by your disease from interfering with the things you want to do? Select Number: 5 Physical Discomfort or Pain: How confident are you that you can keep the physical discomfort or pain of your disease from interfering with the things you want to do? Select Number: 9 Emotional Distress: How confident are you that you can keep the emotional distress caused by your disease from interfering with the things you want to do? Select Number: 9 Other Symptoms or Health Problems: How confident are you that you can keep other symptoms or health problems from interfering with the things you want to do? Select Number: 5 Different Tasks and Activities: How confident are you that you can do the different tasks and activities needed to manage your health condition so as to reduce your need to see a doctor? Select Number: 9 Medication: How confident are you that you can do things other than just taking medication to reduce how much your illness affects your everyday life? Select Number: 9 Total Score:: 7
[2019-01-21 11:18] VITALS: BP 128/68; BP 160/80
== END 2019-01-23 23:59 ==
LOC: CR 08:00
PROVIDERS: Family Provider Internal Medicine; PCP Internal Medicine; Referring Provider Internal Medicine Cardiovascular Disease; Visit Provider Internal Medicine Cardiovascular Disease
DX: I25.10 Atherosclerotic heart disease of native coronary artery without angina pectoris (principal); Z95.5 Presence of coronary angioplasty implant and graft
CPT/HCPCS: 93798

== ENCOUNTER → 2019-02-13 09:13 | Outpatient (CLI) | payer OTHER, SELFPAY ==
[2018-12-23 12:44] VITALS: BMI 36.1
[2019-02-13 11:35] LABS: AST(SGOT) 21 U/L (15-37); Alanine Aminotransfer ALT/SGPT 29 U/L (16-61); Albumin, Serum 3.7 g/dL (3.2-5.0); Alkaline Phosphatase 81 U/L (45-117); Bilirubin, Direct 0.26 mg/dL (0.00-0.30); Cholesterol 84 mg/dL (200); Globulin 3.4 g/dL (2.2-4.2); High Density Lipoprotein 35 mg/dL; Protein, Total 7.1 g/dL (6.4-8.2); Triglycerides 46 mg/dL; Very Low Density Lipoprotein 9 mg/dL (5-40)
== END ==
PROVIDERS: Family Provider Internal Medicine; PCP Internal Medicine; Referring Provider Nurse Practitioner Family; Visit Provider Nurse Practitioner Family
DX: I25.10 Atherosclerotic heart disease of native coronary artery without angina pectoris (principal); E78.5 Hyperlipidemia, unspecified
CPT/HCPCS: 36415; 80061; 80076

== ENCOUNTER 2019-02-18 13:00 | Outpatient (RCR) | payer OTHER, SELFPAY ==
[2018-12-23 12:44] VITALS: BMI 36.1
[2019-01-24 00:24] VITALS: BP 128/68; BP 160/80
--- NOTE | 2019-02-20 06:50 | CR.ITP_ITS ---
Exercise - 60-Day Assessment - Visit Date of Eval: 02/20/19 Session #:: 22 - Stages of Change Stages of Change:: Action - Physician Prescribed Exercise Modalities: Treadmill - Slight ST depression, denied pain/discomfort. Patient is scheduled for Stress Test., Tashia Jackson NuStep Frequency (days/week): 3 Duration (Minutes):: 30-45 Intensity: 60-80% age predicted maximum heart rate reserve METs - Progression: 0.5-1.0 MET, RPE 11-14 WEEK: 8 Target Heart Rate:: 114-130 w/Max HR 136 - Hypertension Resting Blood Pressure:: 120/64 Peak Exercise Blood Pressure:: 160/72 Medication Changes:: No - Intervention Home Exercise/Activity Goal:: Moderate Exercise 30 min/day x 5 days/wk - Education Goals:: Warm-up, RPE DIGNA Scale, S/S, Safe Exercise, Self-Monitoring - Exercise Program Goals Exercise Program Goals: Aerobic Activity >30 min Nutrition - Initial Assessment - Program Goals Nutrition Program Goals: LDL <70. Total Cholesterol <200. HDL >45. Triglycerides <150. HgbA1C <7%. BMI <25 - Diabetes Do you monitor your blood sugar at home?: Yes Nutrition - 60-Day Assessment - Program Goals Nutrition Program Goals: LDL <70. Total Cholesterol <200. HDL >45. Triglycerides <150. HgbA1C <7%. BMI <25 - Visit Date of Eval: 02/20/19 - Stages of Change Stages of Change:: Action - Lipids Has the patient seen the dietitian?: No - Diabetes Diabetes:: No Insulin: No Non-Insulin Dependent?: No - Weight Management Weight:: 245 lb 8 oz - down 3 this month - Intervention Referral to dietitian:: No Referral to Diabetic Clinic:: No Will attend diet classes:: Yes - Education Attended class for:: Healthy eating Tobacco - Initial Assessment - Program Goals Tobacco Program Goals: Complete smoking cessation. Attend education classes. Improve Knowledge Test score - Learning Barriers Learning Barriers: Ready to Learn Tobacco - 60-Day Assessment - Program Goals Tobacco Program Goals: Complete smoking cessation. Attend education classes. Improve Knowledge Test score - Stage of Change Stages of Change:: Action - Learning Barriers Learning Barriers: Participates in education - Family Support Do you have family support?: Yes - Tobacco Use Tobacco Use: Non-smoker Do you use smokeless tobacco?: No - Intervention Smoking Cessation Referral:: No Individual Education/Counseling:: No Education Schedule Given:: Yes - Education Attended class for:: Coronary artery disease, Risk factors, Sexuality, Medical compliance, Cardiac A&P, Angina signs & symptoms Psychosocial - Initial Assess - Target Goals Target Goals: Assess presence or absence of depression. Using a valid screening tool, maximizes coping skills. Positive support system - Psychosocial Test Tool Used:: HANDS Depression Questionnaire - Assistive Devices Fall Risk Assessed:: Yes Psychosocial - 60-Day Assess - Target Goals Target Goals: Assess presence or absence of depression. Using a valid screening tool, maximizes coping skills. Positive support system - Stages of Change Stages of Change:: Action - Psychosocial Test Tool Used:: HANDS Depression Questionnaire - Intervention PS - Interventions: Yes Attend Stress Management Classes, Yes Uses Stress Management Skills, No Referral to Mental Health, No Referral to [facility] Case Management, No Referral to Physician - Education Attended classes for:: Coping techniques, Signs & symptoms of depression, Stress management, Relaxation techniques - Patient/Program Goal Preventative Medication(s):: Aspirin, Clopidogrel, Beta elidia, Statin/lipid - Assistive Devices Assistive Devices:: None Fall Risk Assessed:: Yes Patient Health Questionnaire 60-Day Re-eval Assessment 1. Little interest or pleasure in doing things: Not at all 2. Feeling down, depressed, or hopeless: Not at all 3. Trouble falling or staying asleep, or sleeping too much: Not at all 4. Feeling tired or having little energy: Not at all 5. Poor appetite or overeating: Not at all 6. Feeling bad about yourself -- or that you are a failure or have let yourself or your family down: Not at all 7. Trouble concentrating on things, such as reading the newspaper or watching television: Not at all 8. Moving or speaking so slowly that other people could have noticed. Or the opposite - being so fidgety or restless that you have been moving around a lot more than usual: Not at all 9. Thoughts that you would be better off , or of hurting yourself in some way: Not at all How difficult have these problems made it for you to do your work, take care of things at home, or get along with other people?: Not difficult at all Total Score: 0 Self-Efficacy 60-Day Re-eval Assessment We would like to know how confident you are in doing certain activities. Please select your confidence level for:: Select your confidence level for the following using the scale 1-10 where 1 is not at all confident and 10 is totally confident. Your score is the average of all 6 responses. Fatigue: How confident are you that you can keep the fatigue caused by your disease from interfering with the things you want to do? Select Number: 10 Physical Discomfort or Pain: How confident are you that you can keep the physical discomfort or pain of your disease from interfering with the things you want to do? Select Number: 10 Emotional Distress: How confident are you that you can keep the emotional distress caused by your disease from interfering with the things you want to do? Select Number: 10 Other Symptoms or Health Problems: How confident are you that you can keep other symptoms or health problems from interfering with the things you want to do? Select Number: 10 Different Tasks and Activities: How confident are you that you can do the different tasks and activities needed to manage your health condition so as to reduce your need to see a doctor? Select Number: 10 Medication: How confident are you that you can do things other than just taking medication to reduce how much your illness affects your everyday life? Select Number: 10 Total Score:: 10
[2019-02-20 06:54] VITALS: BP 120/64; BP 160/72
== END 2019-02-22 23:59 ==
LOC: CR 13:00
PROVIDERS: Family Provider Internal Medicine; PCP Internal Medicine; Referring Provider Internal Medicine Cardiovascular Disease; Visit Provider Internal Medicine Cardiovascular Disease
DX: I25.10 Atherosclerotic heart disease of native coronary artery without angina pectoris (principal); Z95.5 Presence of coronary angioplasty implant and graft
CPT/HCPCS: 93798

== ENCOUNTER → 2019-02-24 13:24 | Outpatient (CLI) | payer OTHER, SELFPAY ==
[2018-12-23 12:44] VITALS: BMI 36.1
--- NOTE | 2019-02-24 13:25 | STEWCON_ITS ---
Reason For Study: CAD, ABN EKG Stress Results Protocol: Stress Echocardiogram Maximum Predicted HR: 163 bpm Target HR: 139 bpm % Maximum Predicted HR: 94 % DurationHeart Rate Stage (mm:ss) (bpm) BP Comment BASELINE 59 134/80DILUTED DEFINITY 3 CC USED MIGUEL ÁNGEL PROTOCOL- STAGE 1 3:00 98 130/80NO CP, NO SOB MIGUEL ÁNGEL PROTOCOL- STAGE 2 3:00 114 134/78NO CP, NO SOB MIGUEL ÁNGEL PROTOCOL- STAGE 3 3:00 134 140/80NO CP, NO SOB MIGUEL ÁNGEL PROTOCOL- STAGE 4 2:00 153 / RECOVERY 78 128/78 Stress Duration: 11:00 mm:ss Maximum Stress HR: 153 bpm Baseline Echocardiogram Findings The estimated ejection fraction is 65 %. Stress Echo Wall motion Data Resting WM Intermediate WM Stress WM Resting Wall Motion Wall Motion Stress No regional wall motion No regional wall motion abnormalities noted. abnormalities noted. EKG Data Normal intervals are noted. The patient exercised according to the regular Miguel Ángel protocol for a total duration of 11:01. The maximum heart rate attained was 153 beats per minute. This was 93% of maximum predicted heart rate. The patient exercised into stage 4 of the Miguel Ángel protocol. At peak exercise, upsloping ST changes only were noted, which did not meet the criteria for ischemia. No clinical angina was noted. No arrhythmias noted. Interpretation Summary The estimated ejection fraction is 65 %. Normal, adequate, treadmill echocardiogram. Negative for ischemia by EKG and echocardiographic anterior. The patient had subtle upsloping ST segment depression at peak exercise which did not quite reach criteria for ischemia. Appropriate blood pressure response to exercise. Above average exercise capacity for age. These changes rapidly read normalized by 50 seconds into recovery. No anginal symptoms noted. No arrhythmias noted. Technically difficult study requiring infusion of decreased sensitivity due to poor echo windows requiring Definity agent. Final LVEF is 75%. Test terminated due to achievement of target heart rate. The study was technically difficult. Contrast injection was performed. Ordering Physician: Loyd Jama Referring Physician: Loyd Jama Performed By: Saranya Carlson [facility]
== END ==
PROVIDERS: Family Provider Internal Medicine; PCP Internal Medicine; Referring Provider Internal Medicine Cardiovascular Disease; Visit Provider Internal Medicine Cardiovascular Disease
DX: I25.10 Atherosclerotic heart disease of native coronary artery without angina pectoris (principal); Z95.820 Peripheral vascular angioplasty status with implants and grafts
CPT/HCPCS: 93017; 93350; Q9957; A4216; C8928

== ENCOUNTER 2019-03-25 08:00 | Outpatient (RCR) | payer OTHER, SELFPAY ==
[2018-12-23 12:44] VITALS: BMI 36.1
[2019-02-23 00:17] VITALS: BP 120/64; BP 160/72
--- NOTE | 2019-03-23 13:29 | CR.ITP_ITS ---
General Information - General Information Admitting Diagnosis: PCI - Education/Goals Cardiac Rehabilitation Goals: 1. Maintain the individual as the primary focus of care. 2. To improve the patient's quality of life. 3. Identification of cardiac risk factors and provide cardiac risk factor management. 4. Enhance the psychosocial status of the patient. 5. Reconditioning enough to allow the patient to resume customary activities. 6. Control symptoms of cardiac disease Scale for measuring improvement of personal goals: Enter appropriate number in Comments. 2 = Unchanged. 3 = Slightly Better. 4 = Moderate Improvement. 5 = Met my Goal Exercise - 90-Day Assessment - Visit Date of Eval: 03/23/19 Session #:: 31 - Stages of Change Stages of Change:: Action - Physician Prescribed Exercise Modalities: Treadmill, Rower, Airdyne Frequency (days/week): 3 Duration (Minutes):: 30-45 Intensity: 60-80% age predicted maximum heart rate reserve METs - Progression: 0.5-1.0 MET, RPE 11-14 WEEK: 9 Target Heart Rate:: 114-130 Max HR - Hypertension Resting Blood Pressure:: 122/80 Peak Exercise Blood Pressure:: 172/84 - Intervention Home Exercise/Activity Goal:: Sitting Time <3 hrs/day - Education Goals:: Warm-up, RPE DIGNA Scale, S/S, Safe Exercise, Self-Monitoring - Exercise Program Goals Exercise Program Goals: Aerobic Activity >30 min, B/P <130/80 Nutrition - Initial Assessment - Program Goals Nutrition Program Goals: LDL <70. Total Cholesterol <200. HDL >45. Triglycerides <150. HgbA1C <7%. BMI <25 - Diabetes Do you monitor your blood sugar at home?: Yes Nutrition - 90-Day Assessment - Program Goals Nutrition Program Goals: LDL <70. Total Cholesterol <200. HDL >45. Triglycerides <150. HgbA1C <7%. BMI <25 - Visit Date of Eval: 03/23/19 - Stages of Change Stages of Change:: Action - Lipids Has the patient seen the dietitian?: No - Diabetes Diabetes:: No - Weight Management Weight:: 108.862 kg - Intervention Referral to dietitian:: No Referral to Diabetic Clinic:: No Will attend diet classes:: Yes - Education Attended class for:: Signs & symptoms of hypoglycemia, Signs & symptoms of hyperglycemia, Relate diabetes to coronary artery disease, Healthy eating Tobacco - Initial Assessment - Program Goals Tobacco Program Goals: Complete smoking cessation. Attend education classes. Improve Knowledge Test score - Learning Barriers Learning Barriers: Ready to Learn Tobacco - 90-Day Assessment - Program Goals Tobacco Program Goals: Complete smoking cessation. Attend education classes. Improve Knowledge Test score - Stage of Change Stages of Change:: Action - Learning Barriers Learning Barriers: Participates in education - Family Support Do you have family support?: Yes - Tobacco Use Tobacco Use: Non-smoker Do you use smokeless tobacco?: No - Intervention Smoking Cessation Referral:: No Individual Education/Counseling:: No Education Schedule Given:: Yes - Education Attended class for:: Treating Heart Disease, How The Heart Works, What it means to have Heart Disease, How Coronary Artery Disease is Diagnosed, Heart Procedures, What Heart Medications Do, Risk Factors & Modifications, Living an Active Life, Nutrition, Emotions & Heart Disease, Stress Management & Rel axation, Sleep Disorders & Heart Disease Psychosocial - Initial Assess - Target Goals Target Goals: Assess presence or absence of depression. Using a valid screening tool, maximizes coping skills. Positive support system - Psychosocial Test Tool Used:: HANDS Depression Questionnaire - Assistive Devices Fall Risk Assessed:: Yes Psychosocial - 90-Day Assess - Target Goals Target Goals: Assess presence or absence of depression. Using a valid screening tool, maximizes coping skills. Positive support system - Stages of Change Stages of Change:: Action - Psychosocial Test Tool Used:: HANDS Depression Questionnaire - Intervention PS - Interventions: Yes Attend Stress Management Classes, Yes Uses Stress Management Skills, No Referral to Mental Health, No Referral to [facility] Case Management, No Referral to Physician - Education Attended classes for:: Coping techniques, Signs & symptoms of depression, Stress management, Relaxation techniques - Assistive Devices Assistive Devices:: None Fall Risk Assessed:: Yes Patient Health Questionnaire 90-Day Re-eval Assessment 1. Little interest or pleasure in doing things: Not at all 2. Feeling down, depressed, or hopeless: Not at all 3. Trouble falling or staying asleep, or sleeping too much: Not at all 4. Feeling tired or having little energy: Not at all 5. Poor appetite or overeating: Not at all 6. Feeling bad about yourself -- or that you are a failure or have let yourself or your family down: Not at all 7. Trouble concentrating on things, such as reading the newspaper or watching television: Not at all 8. Moving or speaking so slowly that other people could have noticed. Or the opposite - being so fidgety or restless that you have been moving around a lot more than usual: Not at all 9. Thoughts that you would be better off , or of hurting yourself in some way: Not at all How difficult have these problems made it for you to do your work, take care of things at home, or get along with other people?: Not difficult at all Total Score: 0 Self-Efficacy 90-Day Re-eval Assessment We would like to know how confident you are in doing certain activities. Please select your confidence level for:: Select your confidence level for the following using the scale 1-10 where 1 is not at all confident and 10 is totally confident. Your score is the average of all 6 responses. Fatigue: How confident are you that you can keep the fatigue caused by your disease from interfering with the things you want to do? Select Number: 10 Physical Discomfort or Pain: How confident are you that you can keep the physical discomfort or pain of your disease from interfering with the things you want to do? Select Number: 10 Emotional Distress: How confident are you that you can keep the emotional distress caused by your disease from interfering with the things you want to do? Select Number: 10 Other Symptoms or Health Problems: How confident are you that you can keep other symptoms or health problems from interfering with the things you want to do? Select Number: 10 Different Tasks and Activities: How confident are you that you can do the different tasks and activities needed to manage your health condition so as to reduce your need to see a doctor? Select Number: 10 Medication: How confident are you that you can do things other than just taking medication to reduce how much your illness affects your everyday life? Select Number: 10 Total Score:: 10
[2019-03-23 13:34] VITALS: BP 122/80; BP 172/84
== END 2019-03-25 23:59 ==
LOC: CR 08:00
PROVIDERS: Family Provider Internal Medicine; PCP Internal Medicine; Referring Provider Internal Medicine Cardiovascular Disease; Visit Provider Internal Medicine Cardiovascular Disease
DX: I25.10 Atherosclerotic heart disease of native coronary artery without angina pectoris (principal); Z95.5 Presence of coronary angioplasty implant and graft
CPT/HCPCS: 93798

== ENCOUNTER → 2019-08-29 08:37 | Outpatient (CLI) | payer OTHER, SELFPAY ==
[2019-08-28 10:26] VITALS: BMI 34.2
[2019-08-29 09:42] LABS: AST(SGOT) 27 U/L (15-37); Alanine Aminotransfer ALT/SGPT 50 U/L (16-61); Albumin, Serum 3.5 g/dL (3.2-5.0); Alkaline Phosphatase 75 U/L (45-117); Bilirubin, Direct 0.19 mg/dL (0.00-0.30); Cholesterol 117 mg/dL (200); Globulin 3.5 g/dL (2.2-4.2); High Density Lipoprotein 40 mg/dL; Triglycerides 86 mg/dL; Very Low Density Lipoprotein 17 mg/dL (5-40)
== END ==
PROVIDERS: Family Provider Internal Medicine; PCP Internal Medicine; Referring Provider Internal Medicine Cardiovascular Disease; Visit Provider Internal Medicine Cardiovascular Disease
DX: E78.5 Hyperlipidemia, unspecified (principal)
CPT/HCPCS: 36415; 80061; 80076

== ENCOUNTER → 2021-08-11 09:54 | Outpatient (CLI) | payer OTHER, SELFPAY ==
[2021-08-11 10:26] LABS: Hematocrit 44.4 % (40-54); Hemoglobin 14.2 g/dL (13.0-16.5); Mean Corpuscular Hgb 29.5 pg (27.0-32.0); Mean Corpuscular Volume 92.3 fL (80-94); Mean Platelet Vol. 10.4 fl (6.2-12.0); Platelet Count 236 K/mm3 (150-450); RBC Distribution Width CV 13.6 % (11.6-14.6); RBC Distribution Width SD 46.5 fl (35.1-43.9); Red Blood Count 4.81 M/mm3 (4.6-6.2); White Blood Count 8.5 K/mm3 (4.4-11.0)
[2021-08-11 10:54] LABS: AST(SGOT) 23 U/L (15-37); Alanine Aminotransfer ALT/SGPT 32 U/L (16-61); Albumin, Serum 3.7 g/dL (3.2-5.0); Alkaline Phosphatase 91 U/L (45-117); Anion Gap 4 (5-15); BUN 16 mg/dL (7-18); BUN/Creat Ratio 17.4 RATIO (10-20); Bilirubin, Direct 0.21 mg/dL (0.00-0.30); Calcium,Total 8.6 mg/dL (8.5-10.1); Chloride 108 mmol/L (98-107); Cholesterol 95 mg/dL (200); Creatinine, Serum 0.92 mg/dL (0.70-1.30); EST Glomerular Filtration Rate 89 mL/min (>60); Est Glom Filt Rate - Afr Amer 108 mL/min (>60); Glucose 101 mg/dL (74-106); High Density Lipoprotein 28 mg/dL; Potassium 3.8 mmol/L (3.5-5.1); Protein, Total 7.7 g/dL (6.4-8.2); Sodium Level 139 mmol/L (136-145); Triglycerides 125 mg/dL; Very Low Density Lipoprotein 25 mg/dL (5-40)
== END ==
PROVIDERS: PCP Internal Medicine; Referring Provider Internal Medicine Cardiovascular Disease; Visit Provider Internal Medicine Cardiovascular Disease
DX: I25.10 Atherosclerotic heart disease of native coronary artery without angina pectoris (principal); I10 Essential (primary) hypertension; E78.5 Hyperlipidemia, unspecified
CPT/HCPCS: 36415; 80048; 80061; 80076; 85027

== ENCOUNTER 2021-10-26 07:18 | Outpatient (CLI) | payer OTHER, SELFPAY ==
--- NOTE | 2021-10-26 18:46 | STRESSREP ---
Stress Test Report Exercise myocardial perfusion stress test. 61-year-old man with a history of chest pain. Stress protocol: Resting KG demonstrates normal sinus rhythm with a rate of 57 bpm normal intervals are noted resting blood pressure is 142/90 mmHg. The patient exercised according to regular Paulo protocol for total duration of 7 minutes patient completed 1 minute into stage III of the Paulo protocol. The maximum heart rate attained was 164 bpm which was 102% of max impact at heart rate the maximum workload was 10.1 metabolic equivalents. At rest there were no ST or T wave changes noted suggest ischemia and at peak exercise upsloping ST changes were noted with did not meet the criteria for ischemia. No clinical angina was noted. There were 2 episodes of ventricular ectopic beats noted. The above were asymptomatic. The peak blood pressure was 222/70 mmHg with a rate-pressure product of 32,550. Myocardial perfusion protocol. 14.8 mCi of technetium 99m sestamibi was injected at rest. The patient exercised according to regular Paulo protocol for total duration of 7 minutes and at peak exercise 45.0 mCi of technetium 99m sestamibi was injected stress images were obtained stress and rest images were reconstructed and compared in the short axis vertical long and horizontal long axis. Gated images were also obtained per Perfusion SPECT analysis: Review of the stress images demonstrate normal uptake of tracer noted in all areas of the myocardium. The resting images similarly demonstrate normal uptake of tracer noted in all areas of the myocardium. No areas of reversibility are noted to suggest ischemia and no previous infarct is noted. Gated SPECT analysis: The gated ejection fraction is 60%. Conclusion: Normal exercise myocardial perfusion stress test at a high workload. Preserved ejection fraction. No clinical angina noted.
== END 2021-10-26 23:59 | disposition home or self-care (01) ==
PROVIDERS: PCP Internal Medicine; Referring Provider Internal Medicine Cardiovascular Disease; Visit Provider Internal Medicine Cardiovascular Disease
DX: I25.10 Atherosclerotic heart disease of native coronary artery without angina pectoris (principal); Z95.5 Presence of coronary angioplasty implant and graft
CPT/HCPCS: 78452; 93017; A9500; A4216

== ENCOUNTER → 2024-12-04 | Outpatient (CLI) | payer OTHER, SELFPAY ==
[2024-12-04 10:24] LABS: AST(SGOT) 36 U/L (<=37); Alanine Aminotransfer ALT/SGPT 26 U/L (<=46); Alkaline Phosphatase 72 U/L (40-129); Anion Gap 10 (5-15); BUN 17 mg/dL (4-19); BUN/Creat Ratio 18.7 RATIO (10-20); Bilirubin, Direct 0.27 mg/dL (0.00-0.30); Calcium,Total 8.8 mg/dL (7.6-11.0); Carbon Dioxide 24.3 mmol/L (21.0-32.0); Chloride 106 mmol/L (98-108); Cholesterol 102 mg/dL (<=200); EST Glomerular Filtration Rate 96 (>60); Glucose 98 mg/dL (70-99); High Density Lipoprotein 38 mg/dL; Low Density Lipoprotein Calc. 53 mg/dL; Potassium 4.2 mmol/L (3.3-5.1); Sodium Level 140 mmol/L (133-145); Total Bilirubin 0.67 mg/dL (0.00-1.30); Triglycerides 57 mg/dL; Very Low Density Lipoprotein 11 mg/dL (5-40); cholesterol:hdl ratio screen 2.68
== END | disposition home or self-care (01) ==
PROVIDERS: PCP Internal Medicine; Referring Provider Nurse Practitioner Family; Visit Provider Nurse Practitioner Family
DX: I10 Essential (primary) hypertension (principal); E78.5 Hyperlipidemia, unspecified; Z95.5 Presence of coronary angioplasty implant and graft
CPT/HCPCS: 36415; 80048; 80061; 80076